=== PATIENT | female | born 1945 | race Caucasian/White ===

== ENCOUNTER 2017-10-12 19:20 | Observation (INO) ==
[~2017-10-12 19:20] MED LIST: Piperacillin/Tazobactam 3.375 GM in Water for inj. (sterile) 20 ML 20 ML IVPB ONE
[2017-10-12] MEDS ORDERED: *HR* Morphine 2 MG/ML SYRINGE IVP ONE (19:53)
[2017-10-12] MEDS ORDERED: 0.9 % Sodium Chloride 1,000 ML IVC ONE (19:53)
[2017-10-12] MEDS ORDERED: Ondansetron 4 MG/2 ML VIAL IVP ONE ×2 (19:53→21:41)
--- NOTE | 2017-10-12 20:04 | Emergency Department Note ---
Disposition Clinical Impression: Abdominal pain Qualifiers: Abdominal location: unspecified location Qualified Code(s): R10.9 - Unspecified abdominal pain Disposition: Still a Patient Condition: Good Referrals: Gladis Allison CNP [Primary Care Provider] - Forms: ED Satisfaction Letter, Work/School Release Time of Disposition: 20:58 Abdominal Pain HPI - General Chief Complaint: ED Abdominal Pain Stated Complaint: R side abd pain Time Seen by Provider: 10/12/17 19:27 Source: patient Nursing Notes Reviewed: Yes Vital Signs Reviewed: Yes - History of Present Illness HPI Narrative: Mrs. Bailey, a 72 yo female, presents from home for evaluation of right sided abdominal pain. Onset 1 week ago with nausea. Progressed to waxing and waning sharp stabbing pain, located to the right flankn and RLQ. She notes it feels identical to prior kidney stones. She was reading about RLQ pain and became concerned about appendicitis. PMH:hx multiple nephrolithiasis requiring lithotripsy. HTN, hypothyroid, asthma. Urologist: Dr. Noonan ROS: Pos: as above Neg: fever, chills, vomiting, chest pain, unusual dyspnea, diaphoresis, hematuria, melena, hematochezia Pain Scale: 4 - Related Data Home Medications Medication Instructions Recorded Confirmed Lisinopril 10/11/15 Nexium 10/11/15 Synthroid 10/11/15 10/11/15 B Complex 09/05/16 Multivitamin 09/05/16 Previous Rx's Medication Instructions Recorded Nitrofurantoin Macrocrystal 100 mg PO BID #10 capsule 04/22/17 [Nitrofurantoin] Phenazopyridine HCl [Pyridium] 200 mg PO TIDAC #6 tab 04/22/17 cephALEXin [Keflex] 500 mg PO TID 10 Days capsule 04/24/17 Azithromycin [Zithromax] 250 - 500 mg PO DAILY #6 tablet 07/17/17 Guaifenesin [Mucinex] 1,200 mg PO BID PRN #30 tab.er.12h 07/17/17 Allergies Allergy/AdvReac Type Severity Reaction Status Date / Time levofloxacin [From Levaquin] Allergy Hives Verified 04/25/15 09:10 Erythromycin Base AdvReac Vomiting Verified 04/22/17 13:33 All systems ED: reviewed and negative except as stated. Review of Systems: As Per HPI Abdominal Pain PMH - Past Medical History Medical history: Reports: hypertension, kidney stones, thyroid disease Female Surgical History: Reports: orthopedic, other, other [employer] TECHNICIAN history: Reports: bilateral tubal ligation, other Psychiatric history: Reports: no psych history - Social History Smoking status: Never smoker Alcohol use: Reports: none Drug use: Reports: none Physical Exam Vital Signs Reviewed General: Patient is alert, oriented, and in no acute distress. HEENT: No facial asymmetry. Head is normocephalic and atraumatic. PERRLA, EOMI. oral mucosa moist. Trachea midline. Cardiovascular: Heart regular rate and rhythm without clicks, rubs, gallops, or murmurs. No JVD. PMI nondisplaced. Respiratory: Symmetric chest rise with good respiratory effort. Bilateral breath sounds are clear without wheezing, crackles, or rhonchi. Abdomen: Bowel sounds present normoactive x-4 quadrants. Abdomen is soft, nondistended. Right-sided flank tenderness. No CVA tenderness. Right lower quadrant tenderness to palpation. No rebound or guarding. Musculoskeletal: Spontaneously moving all extremities. Neuro: Alert and oriented 4. Sensation light touch intact. Psych: Patient's affect is appropriate for situation. - General Limitations: no limitations General appearance: alert, in no apparent distress Course Course Narrative: Patient presents with right flank pain clinically consistent with nephrolithiasis in the context of presentation and past medical history. Given her concerns over appendicitis as well as right lower quadrant pain, will CT abdomen pelvis with IV contrast to assess hydronephrosis, nephrolithiasis, evidence of appendicitis or periappendiceal inflammation. Serum hematology is unremarkable specifically no leukocytosis. Serum chemistries unremarkable specifically normal renal function, normal electrolytes, no elevated hepatic enzymes, no elevated pancreatic enzymes, no elevated biliary enzymes. Patient has been signed out to Dr. Vanessa. Pending: Urinalysis, CT abdomen pelvis with IV contrast. Recommendations: If CT shows nephrolithiasis, then recommend anti-medic, analgesia, follow-up to urology. If urinalysis is consistent with urinary tract infection, recommend Keflex empiric antibody therapy with follow-up to primary care physician. Vital Signs Temperature 97.8 F 10/12/17 19:21 Pulse Rate 84 10/12/17 19:21 Respiratory Rate 18 10/12/17 19:21 Blood Pressure 160/72 10/12/17 19:21 O2 Sat by Pulse Oximetry 98 10/12/17 19:21 Temperature 97.8 F 10/12/17 19:21 Pulse Rate 84 10/12/17 19:21 Respiratory Rate 18 10/12/17 19:21 Blood Pressure 160/72 10/12/17 19:21 O2 Sat by Pulse Oximetry 98 10/12/17 19:21 Oxygen Delivery Oxygen Delivery Room Air Abdominal Pain - Lab Data Result diagrams: 10/12/17 20:07 10/12/17 20:07 Lab Results 10/12/17 10/12/17 10/12/17 Range/Units 20:07 20:07 20:07 WBC 8.7 (4.3-11.1) K/mcL RBC 4.94 (3.82-4.97) M/mcL Hgb 14.9 (11.5-15.4) g/dL Hct 46.1 H (35.3-44.9) % MCV 93.3 (83.0-100.0) fL MCH 30.2 (28.0-33.3) pg MCHC 32.3 (31.6-35.5) g/dL RDW 11.9 (11.5-14.5) % Plt Count 255 (140-400) K/mcL MPV 10.1 (9.4-12.4) fL Immature Gran % 0.5 (0-4) % Seg Neutrophils % 71.3 % Lymphocytes % 18.3 % Monocytes % 7.1 % Eosinophils % 2.2 % Basophils % 0.6 % Neutrophils # 6.2 (1.6-8.9) K/mcL Lymphocytes # 1.6 (0.6-4.6) K/mcL Monocytes # 0.6 (0.0-1.3) K/mcL Eosinophils # 0.2 (0.0-0.6) K/mcL Basophils # 0.1 (0.0-0.2) K/mcL PT 11.2 (9.4-12.1) Seconds INR 1.0 APTT 28.6 (26.0-36.0) Seconds Sodium 139 (136-145) mEq/L Potassium 4.1 (3.5-5.1) mEq/L Chloride 106 (98-107) mEq/L Carbon Dioxide 26 (23-29) mEq/L BUN 14 (8-23) mg/dL Creatinine 0.77 (0.60-1.20) mg/dL Est GFR ( Amer) > 60 (> 60) Est GFR (Non-Af Amer) > 60 (> 60) BUN/Creatinine Ratio 18 (6-26) Glucose 113 H (70-105) mg/dL Calculated Osmolality 289 (280-300) Lactic Acid (0.5-2.2) mmol/L Calcium 9.2 (8.6-10.3) mg/dL Total Bilirubin 0.5 (0.3-1.0) mg/dL Direct Bilirubin 0.1 (0.0-0.2) mg/dL Indirect Bilirubin 0.4 (0.0-1.2) mg/dL AST 16 (13-39) Units/L ALT 16 (7-52) Units/L Alkaline Phosphatase 56 (34-104) Units/L Troponin I (< 0.04) ng/mL Serum Total Protein 6.8 (6.4-8.9) g/dL Albumin 3.9 (3.5-5.7) g/dL Globulin 2.9 (2.4-3.5) g/dL Albumin/Globulin Ratio 1.3 (1.1-2.2) Lipase 29 (11-82) Units/L 10/12/17 10/12/17 Range/Units 20:07 20:07 WBC (4.3-11.1) K/mcL RBC (3.82-4.97) M/mcL Hgb (11.5-15.4) g/dL Hct (35.3-44.9) % MCV (83.0-100.0) fL MCH (28.0-33.3) pg MCHC (31.6-35.5) g/dL RDW (11.5-14.5) % Plt Count (140-400) K/mcL MPV (9.4-12.4) fL Immature Gran % (0-4) % Seg Neutrophils % % Lymphocytes % % Monocytes % % Eosinophils % % Basophils % % Neutrophils # (1.6-8.9) K/mcL Lymphocytes # (0.6-4.6) K/mcL Monocytes # (0.0-1.3) K/mcL Eosinophils # (0.0-0.6) K/mcL Basophils # (0.0-0.2) K/mcL PT (9.4-12.1) Seconds INR APTT (26.0-36.0) Seconds Sodium (136-145) mEq/L Potassium (3.5-5.1) mEq/L Chloride (98-107) mEq/L Carbon Dioxide (23-29) mEq/L BUN (8-23) mg/dL Creatinine (0.60-1.20) mg/dL Est GFR ( Amer) (> 60) Est GFR (Non-Af Amer) (> 60) BUN/Creatinine Ratio (6-26) Glucose (70-105) mg/dL Calculated Osmolality (280-300) Lactic Acid 1.2 (0.5-2.2) mmol/L Calcium (8.6-10.3) mg/dL Total Bilirubin (0.3-1.0) mg/dL Direct Bilirubin (0.0-0.2) mg/dL Indirect Bilirubin (0.0-1.2) mg/dL AST (13-39) Units/L ALT (7-52) Units/L Alkaline Phosphatase (34-104) Units/L Troponin I < 0.03 (< 0.04) ng/mL Serum Total Protein (6.4-8.9) g/dL Albumin (3.5-5.7) g/dL Globulin (2.4-3.5) g/dL Albumin/Globulin Ratio (1.1-2.2) Lipase (11-82) Units/L
[2017-10-12 20:16] LABS: Basophils # 0.1 K/mcL (0.0-0.2); Basophils % 0.6 %; Eosinophils # 0.2 K/mcL (0.0-0.6); Eosinophils % 2.2 %; Hematocrit 46.1 % (35.3-44.9); Hemoglobin 14.9 g/dL (11.5-15.4); Immature Granulocytes % 0.5 % (0-4); Lymphocytes # 1.6 K/mcL (0.6-4.6); Lymphocytes % 18.3 %; Mean Corpuscular HGB Conc 32.3 g/dL (31.6-35.5); Mean Corpuscular Hemoglobin 30.2 pg (28.0-33.3); Mean Corpuscular Volume 93.3 fL (83.0-100.0); Mean Platelet Volume 10.1 fL (9.4-12.4); Monocytes # 0.6 K/mcL (0.0-1.3); Monocytes % 7.1 %; Neutrophils # 6.2 K/mcL (1.6-8.9); Platelet Count 255 K/mcL (140-400); Red Blood Count 4.94 M/mcL (3.82-4.97); Red Cell Distribution Width 11.9 % (11.5-14.5); Segmented Neutrophils % 71.3 %
[2017-10-12 20:22] LABS: Prothrombin Time 11.2 Seconds (9.4-12.1)
[2017-10-12 20:24] LABS: Activated Partial Thrombo Time 28.6 Seconds (26.0-36.0)
[2017-10-12 20:37] LABS: Alanine Aminotransferase 16 Units/L (7-52); Albumin 3.9 g/dL (3.5-5.7); Albumin/Globulin Ratio 1.3 (1.1-2.2); Alkaline Phosphatase 56 Units/L (34-104); Aspartate Amino Transferase 16 Units/L (13-39); BUN/Creatinine Ratio 18 (6-26); Bilirubin,Direct 0.1 mg/dL (0.0-0.2); Bilirubin,Indirect 0.4 mg/dL (0.0-1.2); Bilirubin,Total 0.5 mg/dL (0.3-1.0); Blood Urea Nitrogen 14 mg/dL (8-23); Calcium 9.2 mg/dL (8.6-10.3); Carbon Dioxide 26 mEq/L (23-29); Chloride 106 mEq/L (98-107); Globulin 2.9 g/dL (2.4-3.5); Glucose 113 mg/dL (70-105); Lipase 29 Units/L (11-82); Osmolality,Calculated 289 (280-300); Potassium 4.1 mEq/L (3.5-5.1); Sodium 139 mEq/L (136-145); Total Protein 6.8 g/dL (6.4-8.9); eGFR For African Americans > 60 (> 60); eGFR For Non-African Americans > 60 (> 60)
--- NOTE | 2017-10-12 20:39 | Emergency Department Note ---
START Narrative - START START: I examined this patient and my medical decision-making was reviewed with the Resident Physician. I agree with the documented findings, disposition and treatment plan as described except to the extent set forth below. 72 dalila old female presn to the ED with hsiory of kidney stone and RLQ pain and states that this feels simliar to her history of kidney stones although she is concerned about appednciits. I have signed patient out to Dr. Vanessa, based on ABCT dispositon. IF negative then she can be discharged home.
--- NOTE | 2017-10-12 20:41 | Emergency Department Note ---
Disposition Clinical Impression: Acute appendicitis Qualifiers: Acute appendicitis type: unspecified acute appendicitis type Qualified Code(s) : K35.80 - Unspecified acute appendicitis Disposition: Still a Patient Condition: Good Referrals: Gladis Allison CNP [Primary Care Provider] - Forms: ED Satisfaction Letter, Work/School Release Time of Disposition: 21:44 Abdominal Pain HPI - General Chief Complaint: ED Abdominal Pain Stated Complaint: R side abd pain Time Seen by Provider: 10/12/17 19:27 Source: patient - History of Present Illness Pain Scale: 4 - Related Data Home Medications Medication Instructions Recorded Confirmed Lisinopril 10/11/15 Nexium 10/11/15 Synthroid 10/11/15 10/11/15 B Complex 09/05/16 Multivitamin 09/05/16 Previous Rx's Medication Instructions Recorded Nitrofurantoin Macrocrystal 100 mg PO BID #10 capsule 04/22/17 [Nitrofurantoin] Phenazopyridine HCl [Pyridium] 200 mg PO TIDAC #6 tab 04/22/17 cephALEXin [Keflex] 500 mg PO TID 10 Days capsule 04/24/17 Azithromycin [Zithromax] 250 - 500 mg PO DAILY #6 tablet 07/17/17 Guaifenesin [Mucinex] 1,200 mg PO BID PRN #30 tab.er.12h 07/17/17 Allergies Allergy/AdvReac Type Severity Reaction Status Date / Time levofloxacin [From Levaquin] Allergy Hives Verified 04/25/15 09:10 Erythromycin Base AdvReac Vomiting Verified 04/22/17 13:33 Abdominal Pain PMH - Past Medical History Medical history: Reports: hypertension, kidney stones, thyroid disease Female Surgical History: Reports: orthopedic, other, other [employer]AKAGE history: Reports: bilateral tubal ligation, other Psychiatric history: Reports: no psych history - Social History Smoking status: Never smoker Alcohol use: Reports: none Drug use: Reports: none Physical Exam - General Limitations: no limitations General appearance: alert, in no apparent distress Course - Reevaluation(s) Reevaluation #1: received the patient in sign out from the department emergency medicine attending Michelle John @ 2039. Patient was initially seen and evaluated by Dr. Gonzalez and Dr. Michelle John. Please see The notes that portion of the ED workup and management. 72-year-old female with abdominal pain in the right lower quadrant. Concerns for possible kidney stone and appendicitis. Labs were essentially baseline are within normal limits. Patient has an abdominal pelvic CT ordered with IV fluids. Check on the results of those tests. And reassess patient. Disposition pending. Time: 20:38 Reevaluation #2: ED workup is complete. Abdominopelvic CT with radiology as acute uncomplicated appendicitis. Patient and son present informed of results. Page Dr. Ding general surgeon retail presentation specialist. Disposition pending. Admission anticipated. Time: 21:38 Reevaluation #3: Chest the case with Dr. Valle on-call surgeon agree to have the patient admitted. He had requested that I write for something for pain and IV fluids and antibiotics. Patient get 125 mL per hour of normal saline patient is given 0.5 mg of Dilaudid IV for margins of Zofran IV and 3.375 mg of Zosyn. Admission orders place. Patient admitted with diagnosis of acute appendicitis in stable condition Time: 21:43 Vital Signs Temperature 97.8 F 10/12/17 19:21 Pulse Rate 84 10/12/17 19:21 Respiratory Rate 18 10/12/17 19:21 Blood Pressure 160/72 10/12/17 19:21 O2 Sat by Pulse Oximetry 98 10/12/17 19:21 Temperature 97.8 F 10/12/17 19:21 Pulse Rate 82 10/12/17 20:15 Respiratory Rate 16 10/12/17 20:15 Blood Pressure 158/91 10/12/17 20:15 O2 Sat by Pulse Oximetry 97 10/12/17 20:15 Oxygen Delivery Oxygen Delivery Room Air Abdominal Pain - Lab Data Result diagrams: 10/12/17 20:07 10/12/17 20:07 Lab Results 10/12/17 10/12/17 10/12/17 Range/Units 20:07 20:07 20:07 WBC 8.7 (4.3-11.1) K/mcL RBC 4.94 (3.82-4.97) M/mcL Hgb 14.9 (11.5-15.4) g/dL Hct 46.1 H (35.3-44.9) % MCV 93.3 (83.0-100.0) fL MCH 30.2 (28.0-33.3) pg MCHC 32.3 (31.6-35.5) g/dL RDW 11.9 (11.5-14.5) % Plt Count 255 (140-400) K/mcL MPV 10.1 (9.4-12.4) fL Immature Gran % 0.5 (0-4) % Seg Neutrophils % 71.3 % Lymphocytes % 18.3 % Monocytes % 7.1 % Eosinophils % 2.2 % Basophils % 0.6 % Neutrophils # 6.2 (1.6-8.9) K/mcL Lymphocytes # 1.6 (0.6-4.6) K/mcL Monocytes # 0.6 (0.0-1.3) K/mcL Eosinophils # 0.2 (0.0-0.6) K/mcL Basophils # 0.1 (0.0-0.2) K/mcL PT 11.2 (9.4-12.1) Seconds INR 1.0 APTT 28.6 (26.0-36.0) Seconds Sodium 139 (136-145) mEq/L Potassium 4.1 (3.5-5.1) mEq/L Chloride 106 (98-107) mEq/L Carbon Dioxide 26 (23-29) mEq/L BUN 14 (8-23) mg/dL Creatinine 0.77 (0.60-1.20) mg/dL Est GFR ( Amer) > 60 (> 60) Est GFR (Non-Af Amer) > 60 (> 60) BUN/Creatinine Ratio 18 (6-26) Glucose 113 H (70-105) mg/dL Calculated Osmolality 289 (280-300) Lactic Acid (0.5-2.2) mmol/L Calcium 9.2 (8.6-10.3) mg/dL Total Bilirubin 0.5 (0.3-1.0) mg/dL Direct Bilirubin 0.1 (0.0-0.2) mg/dL Indirect Bilirubin 0.4 (0.0-1.2) mg/dL AST 16 (13-39) Units/L ALT 16 (7-52) Units/L Alkaline Phosphatase 56 (34-104) Units/L Troponin I (< 0.04) ng/mL Serum Total Protein 6.8 (6.4-8.9) g/dL Albumin 3.9 (3.5-5.7) g/dL Globulin 2.9 (2.4-3.5) g/dL Albumin/Globulin Ratio 1.3 (1.1-2.2) Lipase 29 (11-82) Units/L Urine Color (Yellow) Urine Clarity (Clear) Urine pH (5.0-8.0) pH Units Ur Specific [place] (1.010-1.025) Urine Protein (Neg-Trace) mg/dL Urine Glucose (UA) (Normal) mg/dL Urine Ketones (Negative) mg/dL Urine Blood (Negative) Urine Nitrite (Negative) Urine Bilirubin (Negative) Urine Urobilinogen (Normal) mg/dL Ur Leukocyte Esterase (Negative) Urine Microscopic RBC (0-3) per hpf Urine Microscopic WBC (0-3) per hpf Ur Squamous Epith Cells (None-Few) per lpf Urine Bacteria (None-Few) per hpf Hyaline Casts (None-Few) per lpf Ur Culture Indicated? (NO) 10/12/17 10/12/17 10/12/17 Range/Units 20:07 20:07 21:13 WBC (4.3-11.1) K/mcL RBC (3.82-4.97) M/mcL Hgb (11.5-15.4) g/dL Hct (35.3-44.9) % MCV (83.0-100.0) fL MCH (28.0-33.3) pg MCHC (31.6-35.5) g/dL RDW (11.5-14.5) % Plt Count (140-400) K/mcL MPV (9.4-12.4) fL Immature Gran % (0-4) % Seg Neutrophils % % Lymphocytes % % Monocytes % % Eosinophils % % Basophils % % Neutrophils # (1.6-8.9) K/mcL Lymphocytes # (0.6-4.6) K/mcL Monocytes # (0.0-1.3) K/mcL Eosinophils # (0.0-0.6) K/mcL Basophils # (0.0-0.2) K/mcL PT (9.4-12.1) Seconds INR APTT (26.0-36.0) Seconds Sodium (136-145) mEq/L Potassium (3.5-5.1) mEq/L Chloride (98-107) mEq/L Carbon Dioxide (23-29) mEq/L BUN (8-23) mg/dL Creatinine (0.60-1.20) mg/dL Est GFR ( Amer) (> 60) Est GFR (Non-Af Amer) (> 60) BUN/Creatinine Ratio (6-26) Glucose (70-105) mg/dL Calculated Osmolality (280-300) Lactic Acid 1.2 (0.5-2.2) mmol/L Calcium (8.6-10.3) mg/dL Total Bilirubin (0.3-1.0) mg/dL Direct Bilirubin (0.0-0.2) mg/dL Indirect Bilirubin (0.0-1.2) mg/dL AST (13-39) Units/L ALT (7-52) Units/L Alkaline Phosphatase (34-104) Units/L Troponin I < 0.03 (< 0.04) ng/mL Serum Total Protein (6.4-8.9) g/dL Albumin (3.5-5.7) g/dL Globulin (2.4-3.5) g/dL Albumin/Globulin Ratio (1.1-2.2) Lipase (11-82) Units/L Urine Color Yellow (Yellow) Urine Clarity Hazy A (Clear) Urine pH 7.0 (5.0-8.0) pH Units Ur Specific [place] 1.018 (1.010-1.025) Urine Protein Negative (Neg-Trace) mg/dL Urine Glucose (UA) Normal (Normal) mg/dL Urine Ketones Negative (Negative) mg/dL Urine Blood Trace H (Negative) Urine Nitrite Negative (Negative) Urine Bilirubin Negative (Negative) Urine Urobilinogen Normal (Normal) mg/dL Ur Leukocyte Esterase Large H (Negative) Urine Microscopic RBC 0-3 (0-3) per hpf Urine Microscopic WBC 50-100 H (0-3) per hpf Ur Squamous Epith Cells Many H (None-Few) per lpf Urine Bacteria Moderate H (None-Few) per hpf Hyaline Casts None Seen (None-Few) per lpf Ur Culture Indicated? NO. (NO)
[2017-10-12 21:22] LABS: Bilirubin,Urine Negative (Negative); Blood,Urine Trace (Negative); Color,Urine Yellow (Yellow); Glucose,Urine (UA) Normal (Normal); Ketones,Urine Negative (Negative); Leukocyte Esterase,Urine Large (Negative); Nitrite,Urine Negative (Negative); Protein,Urine Negative (Neg-Trace); Specific Gravity,Urine 1.018 (1.010-1.025); Urobilinogen,Urine Normal (Normal)
[2017-10-12 21:24] LABS: Bacteria,Urine Moderate per hpf (None-Few); Hyaline Casts,Urine None Seen per lpf (None-Few); RBC,Urine 0-3 per hpf (0-3); Squamous Epithelial Cell,Urine Many per lpf (None-Few); WBC,Urine 50-100 per hpf (0-3)
[2017-10-12 21:25] LABS: Clarity,Urine Hazy (Clear)
[2017-10-12] MEDS ORDERED: *HR* HYDROmorphone (PF) 1 MG/ML SYRINGE IVP ONE (21:41)
[2017-10-12] MEDS ORDERED: *HR* LORazepam 2 MG/ML VIAL IVP ONE (21:52)
[2017-10-12] MEDS: 0.9 % Sodium Chloride 1,000 ML IVC SCH (22:26)
[2017-10-12] MEDS ORDERED: Piperacillin/Tazobactam 3.375 GM in Water for inj. (sterile) 20 ML 20 ML IVPB ONE (23:00)
[2017-10-13] MEDS: cefOXitin 2,000 MG in Water for inj. (sterile) 20 ML 10 ML IVP SCH ×5 (01:18→22:00)
[2017-10-13] MEDS ORDERED: cefOXitin 2,000 MG in D5% in Water (Mini-Bag+) 100 ML IVPB SCH (06:00)
[2017-10-13] MEDS: 0.9 % Sodium Chloride 1,000 ML IVC SCH ×2 (06:14→15:40)
--- NOTE | 2017-10-13 10:22 | General Surg History&Physical ---
Date of Encounter: 10/13/17 Time of Encounter: 09:30 Assessment and Plan (1) Acute appendicitis Current Visit: Yes Status: Acute The assessment and plan as outlined above was discussed with the patient and/or family members who expressed understanding and agreement. All questions were answered. NPO IV fluids IV antibiotics- Mefoxin Supportive care PPI therapy daily Incentive spirometer every 1 hour while awake Risks, benefits, alternatives, expected outcomes have been reviewed with the patient she is in agreement to proceed to the operating room with Dr. Ding for laparoscopic appendectomy in the next 24 hours. Qualifiers: Acute appendicitis type: with localized peritonitis Qualified Code(s): K35.3 - Acute appendicitis with localized peritonitis (2) DVT prophylaxis Current Visit: Yes Status: Acute The assessment and plan as outlined above was discussed with the patient and/or family members who expressed understanding and agreement. All questions were answered. EPCDs to bilateral lower extremities for DVT prophylaxis Ambulatory hallways 3 times a day History of Present Illness Chief complaint: Right-sided abdominal pain HPI: Ms. Nunn is a 72 year old female who presented to the emergency department last evening with complaints of a four-day history of right-sided abdominal pain. She states that she has a history of kidney stones and that she thought that this was what was going on. She states the pain was persistent and it did not progress and became severe. She states that the intensity of the pain does wax and wane. She decided to present to the emergency Department for evaluation due to the persistence of the pain. She does admit to diarrhea this week but denies any melena or hematochezia. She denies any nausea or vomiting. She denies any fevers or chills. She admits to shortness of breath but she states this is chronic for her. She denies any chest pains. She denies any difficulty with urination. She admits to reflux the states this is chronic for her. She has had a CAT scan evaluation which shows evidence of acute uncomplicated appendicitis. The patient's been admitted to the hospital for further treatment. Past Med Surg Social Fam HX - Past Medical History Source: patient Medical history: hypertension, kidney stones, thyroid disease Psychiatric history: no psych history - Past Surgical History Surgical History: breast surgery (right breast partial mastectomy for precancerous lesion), orthopedic, other (left shoulder tendon repair), other ( lithotripsy for kidney stones, colonoscopy X 2 (last one normal and less than 10 years ago), tubal ligation, heart cath X 3 without intervention) - Social History Smoking Status: Former smoker (quit greater than 10 years ago) Smokeless Tobacco Status: No Alcohol use: none Drug use: none Current living situation: Home - Independent Activity Level: Independent ambulation - Family History Mother Living Status: Age at : 90 Cause of : unknown (reaction to morphine ?) Father Living Status: Cause of : Dementia Sister Living Status: Still Living Medications and Allergies Levothyroxine [Synthroid] 88 mcg PO 0630 10/11/15 [History] Lisinopril [Zestril] 20 mg PO QAM 10/11/15 [History] Betamethasone/Propylene Glyc [Betamethasone Dp Aug 0.05% Lot] 1 appl TP BID PRN 10/12/17 [History] Calcium Carbonate [Tums] 1,000 mg PO Q4HR PRN 10/12/17 [History] Clobetasol Propionate [Temovate 0.05%] 1 appl TP BID PRN 10/12/17 [History] Ergocalciferol (VITAMIN D2) [Vitamin D2] 50,000 unit PO MO 10/12/17 [History] Lisinopril [Zestril] 10 mg PO QPM PRN 10/12/17 [History] 3 Allergy/AdvReac Type Severity Reaction Status Date / Time levofloxacin [From Levaquin] Allergy Hives Verified 04/25/15 09:10 Erythromycin Base AdvReac Vomiting Verified 04/22/17 13:33 Review of Systems All systems PM: reviewed and no additional remarkable complaints except as stated (in the HPI) All systems PM: A 10-system review of systems was performed and is negative for pertinent findings except as documented above in the HPI. General Surgery Exam Initial Vital Signs Temp Pulse Resp BP Pulse Ox 97.8 F 84 18 160/72 98 10/12/17 19:21 10/12/17 19:21 10/12/17 19:21 10/12/17 19:21 10/12/17 19:21 - General physical appearance well developed, well nourished, moderate pain - Eyes normal ocular movement - ENT normal mucosa, atraumatic, normocephalic - Neck trachea midline - Respiratory normal respiratory effort, clear to auscultation - Cardiovascular Cardiovascular exam: Present: RRR - Abdomen Abdomen general surgery: Present: bowel sounds present, soft, tender Abdominal Tenderness: Present: RLQ - Integumentary Integumentary general surgery: Present: warm and dry - Neurologic Present: CN 2-12 grossly intact - Musculoskeletal Present: normal gait, normal posture - Psychiatric Psychiatric general surgery: Present: appropriate, oriented to person, oriented to place, oriented to time, speech is normal, memory intact Results - Labs 10/12/17 20:07 10/12/17 20:07 Abnormal lab results Hct 46.1 % (35.3-44.9) H 10/12/17 20:07 Glucose 113 mg/dL (70-105) H 10/12/17 20:07 POC Glucose 129 (58-89) H 10/13/17 00:46 Urine Clarity Hazy (Clear) A 10/12/17 21:13 Urine Blood Trace (Negative) H 10/12/17 21:13 Ur Leukocyte Esterase Large (Negative) H 10/12/17 21:13 Urine Microscopic WBC 50-100 per hpf (0-3) H 10/12/17 21:13 Ur Squamous Epith Cells Many per lpf (None-Few) H 10/12/17 21:13 Urine Bacteria Moderate per hpf (None-Few) H 10/12/17 21:13 All other labs normal. - Imaging Additional studies: Abdomen/Pelvis CT 10/12/17 19:53 IMPRESSION: Findings compatible with acute uncomplicated appendicitis. There is fluid within the endometrial canal, which is unusual for the patient's age. After resolution of acute symptoms, follow-up nonemergent pelvic ultrasound is recommended to better evaluate that. D/ / Alexander Blanchard MD / Alexander Blanchard MD Interpreting Provider: Alexander Blanchard MD - Attending Attestation For this encounter, I have reviewed the ROAD CREW MEMBER or PA documentation, treatment plan, and medical decision making; and I have had face to face time with this patient.
[2017-10-13] MEDS ORDERED: Ondansetron 4 MG/2 ML VIAL IVP PRN (10:29)
[2017-10-13] MEDS ORDERED: Naloxone 0.4 MG/ML INJ IVP PRN (10:29)
[2017-10-13] MEDS ORDERED: traMADol 50 MG TABLET PO PRN (10:33)
[2017-10-13] MEDS ORDERED: Acetaminophen 325 MG TABLET PO PRN (10:33)
[2017-10-13] MEDS: Ketorolac 15 MG/ML VIAL IVP SCH ×2 (11:34→15:41)
[2017-10-13] MEDS ORDERED: *HR* Metoprolol 5 MG/5 ML VIAL IVP ONE (15:15)
[2017-10-13] MEDS ORDERED: D5% in Water 1,000 ML IVC PRN (18:08)
[2017-10-13] MEDS ORDERED: Dextrose Gel 15 GM/37.5 ML TUBE PO PRN ×2 (18:08)
[2017-10-13] MEDS ORDERED: *HR* Dextrose 50 % in Water (Syg) 50 ML SYRINGE IVP PRN (18:08)
[2017-10-13] MEDS ORDERED: Lidocaine -MPF 2% 2 ML VIAL ONE (22:01)
[2017-10-13] MEDS ORDERED: Ondansetron 4 MG/2 ML VIAL ONE (22:01)
[2017-10-13] MEDS ORDERED: *HR* Propofol 200 MG/20 ML VIAL IVP ONE (22:01)
[2017-10-13] MEDS ORDERED: Dexamethasone 4 MG/ML VIAL ONE (22:01)
[2017-10-13] MEDS ORDERED: *HR* FentaNYL (PF) 100 MCG/2 ML VIAL ONE ×2 (22:01→23:27)
--- NOTE | 2017-10-13 22:14 | Anesthesia Evaluation PreOp ---
Date of Encounter: 10/13/17 Time of Encounter: 22:25 - Past History Planned Operation: Lap Appendectomy Cardiac History: HTN Pulmonary History: Former smoker [employer] History: Denies Any Significant HX Other Medical History: Thyroid, GERD Anesthesia History: No Prior Anesthetic Complications : No Alcohol Use: none Drug use: none Medications and Allergies Levothyroxine [Synthroid] 88 mcg PO 0630 10/11/15 [History] Lisinopril [Zestril] 20 mg PO QAM 10/11/15 [History] Betamethasone/Propylene Glyc [Betamethasone Dp Aug 0.05% Lot] 1 appl TP BID PRN 10/12/17 [History] Calcium Carbonate [Tums] 1,000 mg PO Q4HR PRN 10/12/17 [History] Clobetasol Propionate [Temovate 0.05%] 1 appl TP BID PRN 10/12/17 [History] Ergocalciferol (VITAMIN D2) [Vitamin D2] 50,000 unit PO MO 10/12/17 [History] Lisinopril [Zestril] 10 mg PO QPM PRN 10/12/17 [History] 3 Allergy/AdvReac Type Severity Reaction Status Date / Time levofloxacin [From Levaquin] Allergy Hives Verified 04/25/15 09:10 Erythromycin Base AdvReac Vomiting Verified 04/22/17 13:33 - Meds/Allergy Pre-op Review Medications Reviewed: Yes Allergies Reviewed: Yes Beta Blockers on Current Med List: No Anesthesia Results - Labs 10/12/17 20:07 10/12/17 20:07 Laboratory Tests 10/12/17 10/12/17 10/12/17 20:07 20:07 20:07 Hgb 14.9 Hct 46.1 H Plt Count 255 PT 11.2 APTT 28.6 Sodium 139 Potassium 4.1 BUN 14 Creatinine 0.77 - Imaging EKG: report reviewed (SR Left Anterior Fascicular Block) Additional studies: EF 55% Anesthesia Exam O2 Sat Height 1.65 m Weight 95.25 kg Weight 95.25 kg O2 Sat by Pulse Oximetry 94 O2 Sat by Pulse Oximetry 95 O2 Sat by Pulse Oximetry 94 O2 Sat by Pulse Oximetry 95 O2 Sat by Pulse Oximetry 96 O2 Sat by Pulse Oximetry 98 Vital Signs Temp Pulse Resp BP Pulse Ox 97.8 F 84 18 160/72 98 10/12/17 19:21 10/12/17 19:21 10/12/17 19:21 10/12/17 19:21 10/12/17 19:21 Height: 5'5 Weight: 209 lbs NPO (# of Hours): MN Pain Scale: 0 - HEENT Pupil (Motor): Pupils equal, EOMI Mallampati: II Oral Opening: Less than or equal to 3 - [employer] LOC: Oriented [employer] Motor: Normal RUE, Normal LUE, Normal RLE, Normal LLE, Normal Face [employer] Sensory: Normal: RUE, LUE, RLE, LLE, Face - Cardiac Rhythm: Regular Murmur: None JVD: No Carotid Bruit: No - Pulmonary Breath Sounds: bilateral Clear Respiratory Effort: Symmetrical Anesthesia Assess/Plan ASA Score: 2 Modified Deric Scale for Level of Consciousness: Cooperative, oriented, and tranquil Anesthetic Plan: General Monitoring Plan: Standard Monitors Recovery Plan: PACU (Discussed GA, agrees to proceed)
[2017-10-13] MEDS ORDERED: Acetaminophen IV 1,000 MG/100 ML INFUS..BTL ONE (22:48)
[2017-10-13] MEDS ORDERED: Lidocaine -MPF 4% 5 ML AMPUL ONE (23:18)
--- NOTE | 2017-10-13 23:37 | Operative Note ---
Date of procedure: 10/13/17 Pre-op diagnosis: appendicitis Post-op diagnosis: same Procedure: Laparoscopic Appendectomy Anesthesia: MIRIAM Surgeon: Yasmani Ding Was there an ex assistant/program director present: No Estimated blood loss (cc): 5 Specimen: appendix Condition: stable Disposition: same day Procedure in Detail: After informed consent, patient was taken to the operating room placed in supine position. After adequate sedation anesthesia the abdomen was prepped and draped. A 12 mm cannula was placed in the umbilicus. A 5 mm cannulas placed in suprapubic region and the left lower quadrant. Camera was inserted and the abdomen after a pneumoperitoneum. 2 Navdeep graspers were used to identify the base of the appendix. A appendiceal window was created. A REFUGIO endoscopic stapler was placed across the base. A vascular load was placed across the mesoappendix. Once the appendix was was placed in an Endobag and removed through the umbilicus. The right lower quadrant was suctioned dry no bleeding was identified. Remainder the pneumoperitoneum was evacuated. The umbilicus was closed with an 0 Vicryl suture in [id number] fashion. Skin was closed with 4-0 Vicryl suture and Dermabond.
[2017-10-13] MEDS ORDERED: Ketorolac 30 MG/ML VIAL ONE (23:50)
[2017-10-13] MEDS ORDERED: Neostigmine Methylsulfate 3 MG/3 ML SYRINGE ONE (23:51)
--- NOTE | 2017-10-14 00:24 | Anesthesia Evaluation Post Op ---
Date of Encounter: 10/14/17 Time of Encounter: 00:30 - Vital Signs Vital Signs: Vital Signs/O2 Sat/Glucose, Most Current Temp Pulse Resp BP Pulse Ox 10/14/17 00:05 97.4 F L 92 16 144/74 94 - Lungs Lungs: Clear Ascult./Percussion - Airway Airway: Non-obstructed - Cardiovascular Regular Rate - Mental Status Mental Status: Alert & Oriented, Answers Appropriately - Pain Pain Scale: 2 - Nausea Vomiting Nausea Vomiting: Not Present - Hydration Hydration: Ice chips - Discharge PostOp Status: Transfer Patient to floor
[2017-10-14] MEDS ORDERED: *HR* Dextrose 50 % in Water (Syg) 50 ML SYRINGE IVP PRN (00:58)
[2017-10-14] MEDS ORDERED: Ondansetron 4 MG/2 ML VIAL IVP PRN (00:58)
[2017-10-14] MEDS ORDERED: traMADol 50 MG TABLET PO PRN (00:58)
[2017-10-14] MEDS ORDERED: D5% in Water 1,000 ML IVC PRN (00:58)
[2017-10-14] MEDS ORDERED: Acetaminophen 325 MG TABLET PO PRN (00:58)
[2017-10-14] MEDS ORDERED: Dextrose Gel 15 GM/37.5 ML TUBE PO PRN ×2 (00:58)
[2017-10-14] MEDS ORDERED: Naloxone 0.4 MG/ML INJ IVP PRN (00:58)
[2017-10-14] MEDS: 0.9 % Sodium Chloride 1,000 ML IVC SCH ×3 (02:57→11:02)
--- NOTE | 2017-10-14 05:44 | General Surgery Progress Note ---
Date of Encounter: 10/14/17 Time of Encounter: 05:41 - Assessment and Plan (1) Acute appendicitis Current Visit: Yes Status: Acute Date of procedure: 10/13/17 Pre-op diagnosis: appendicitis Post-op diagnosis: same Procedure: Laparoscopic Appendectomy Anesthesia: DAVISA Surgeon: Yasmani Ding Estimated blood loss (cc): 5 POD 1 AM labs pending Pt remains afebrile, hemodynamically stable IV fluids IV antibiotics- Cefoxitin Supportive care PPI therapy daily Incentive spirometer every 1 hour while awake GI and DVT prophylaxis Qualifiers: Acute appendicitis type: with localized peritonitis Qualified Code(s): K35.3 - Acute appendicitis with localized peritonitis (2) DVT prophylaxis Current Visit: Yes Status: Acute EPCDs Ambulate with assistance TID, or as tolerated Subjective Patient reports: afebrile Objective Vital Signs - Last 8 Hours Temp Pulse Resp BP Pulse Ox 10/14/17 04:30 98.0 F 83 18 117/72 93 10/14/17 01:10 96 10/14/17 00:35 97.2 F L 70 20 136/71 96 10/14/17 00:25 67 20 144/82 98 10/14/17 00:15 64 20 156/86 98 10/14/17 00:05 97.4 F L 92 16 144/74 94 Intake and Output 10/13/17 10/13/17 10/14/17 15:59 23:59 07:59 Intake Total 1010 / 1010 700 / 700 Output Total 1225 / 1225 0 / 0 5 / 5 Balance -215 / -215 695 / 695 Intake: IV Fluids 1010 / 1010 700 / 700 0.9 % Sodium Chloride 1,000 ML 1000 / 1000 700 / 700 @ 125 mls/hr IVC .Q8H JOSE Rx#: [id number] Mefoxin 2,000 MG In Water for inj. (sterile) 10 ML @ 150 mls/ hr IVP Q6HR JOSE Rx#:[id number] Oral 0 / 0 0 / 0 Output: Urine 1225 / 1225 0 / 0 Estimated Blood Loss 5 / 5 Other: Meal NPO NPO Percent of Meal Consumed 0% 0% # Voids 1 Blood Glucose* 103 93 105 - Labs 10/12/17 20:07 10/12/17 20:07 Consult Discharge Plan - Plan Referrals: Gladis Allison CNP [Primary Care Provider] -
[2017-10-14] MEDS ORDERED: cefOXitin 2,000 MG in Water for inj. (sterile) 20 ML 10 ML IVP SCH (06:00)
[2017-10-14] MEDS ORDERED: Ketorolac 15 MG/ML VIAL IVP SCH (06:00)
[2017-10-14 06:49] VITALS: BP 121/71
[2017-10-14] MEDS ORDERED: Lisinopril 20 MG TABLET PO SCH ×2 (09:00)
--- NOTE | 2017-10-14 09:12 | Discharge Summary ---
Date of Encounter: 10/14/17 Time of Encounter: 09:09 - Discharge Diagnosis (1) Acute appendicitis Priority: Primary Status: Resolved Qualifiers: Acute appendicitis type: with localized peritonitis Qualified Code(s): K35.3 - Acute appendicitis with localized peritonitis - Discharge Medications Prescriptions: Ibuprofen 800 mg PO Q8H #90 tablet Tramadol HCl [Ultram] 50 mg PO TID PRN 7 Days #21 tab PRN Reason: Pain Home Medications: Levothyroxine [Synthroid] 88 mcg PO 0630 10/11/15 [History] Lisinopril [Zestril] 20 mg PO QAM 10/11/15 [History] Betamethasone/Propylene Glyc [Betamethasone Dp Aug 0.05% Lot] 1 appl TP BID PRN 10/12/17 [History] Calcium Carbonate [Tums] 1,000 mg PO Q4HR PRN 10/12/17 [History] Clobetasol Propionate [Temovate 0.05%] 1 appl TP BID PRN 10/12/17 [History] Ergocalciferol (VITAMIN D2) [Vitamin D2] 50,000 unit PO MO 10/12/17 [History] Lisinopril [Zestril] 10 mg PO QPM PRN 10/12/17 [History] Ibuprofen 800 mg PO Q8H #90 tablet 10/14/17 [Rx] Tramadol HCl [Ultram] 50 mg PO TID PRN 7 Days #21 tab 10/14/17 [Rx] Allergies/Adverse Reactions: 3 Allergy/AdvReac Type Severity Reaction Status Date / Time levofloxacin [From Levaquin] Allergy Hives Verified 04/25/15 09:10 Erythromycin Base AdvReac Vomiting Verified 04/22/17 13:33 General Surgery Exam Initial Vital Signs Temp Pulse Resp BP Pulse Ox 97.8 F 84 18 160/72 98 10/12/17 19:21 10/12/17 19:21 10/12/17 19:21 10/12/17 19:21 10/12/17 19:21 - General physical appearance well developed, well nourished, no distress - ENT atraumatic, normocephalic - Neck trachea midline, no venous distension - Respiratory normal expansion, normal respiratory effort, clear to auscultation - Abdomen Abdomen general surgery: Present: bowel sounds present, soft, tender (Expected postoperative tenderness) Hernia: Present: none - Incision Incision: Present: clean and dry, intact - Integumentary Integumentary general surgery: Present: warm and dry, no abnormal pigmentation - Neurologic Present: CN 2-12 grossly intact, normal coordination, normal sensation - Musculoskeletal Present: normal gait, normal posture - Psychiatric Psychiatric general surgery: Present: A&Ox3, appropriate, oriented to person, oriented to place, oriented to time, speech is normal, memory intact Date of admission: 10/12/17 23:07 Primary care physician: Gladis Allison CNP Discharging clinician: Hina Bahena Anticipated date of discharge: 10/14/17 - Patient Status Disposition: Home, Self-Care Condition: Good Functional capacity at discharge: independent ambulation Overall status at discharge: patient is back to baseline - Discharge Instructions Instructions: Laparoscopic Appendectomy (DC) Follow Up With: Gladis Allison CNP [Primary Care Provider] - Dianne Tang CNP [Advanced Practice Nurse] - 10/30/17 3:00 pm Additional Instructions: General Surgical Discharge Instructions 1. No pushing, pulling, or lifting greater than 15 lbs for 2-4 weeks (depending upon procedure). 2. You may shower beginning today, but no tub baths, soaking, or swimming for 2 weeks. 3. You may resume driving when you are off narcotics and are safe to react in a car. 4. Take ibuprofen every 8 hours for discomfort. If this does not relieve discomfort, you may take the as needed Percocet. Take narcotics as directed. Do not take more narcotics then directed and do not share your narcotics with any other person. Do not drink alcohol while on narcotics. 5. Take stool softeners (Colace) or a water based laxative (Miralax) while taking narcotics. You may hold for loose stools. 6. Report any fevers greater than 100.5F, increase abdominal discomfort, drainage that looks like pus, increased redness or pain at the surgical site, or any vomiting. 7. Report any pain in the calves, shortness of breath, or rapid heartbeat. 8. Follow-up in the office as directed. 9. If you were prescribed antibiotics, do not stop them without talking to your provider. - Diet and Activity Activity: increase activity as tolerated Diet: advance to your usual diet - Hospital Course Hospital course: Ms. Nunn is a 72 year old female who presented on 10/13/2017 for complaints of right lower quadrant discomfort. Her exam and CT was consistent with acute appendicitis. She was taken to the operating room on 10/14/2017 where she underwent an uncomplicated laparoscopic appendectomy. She is ambulating avoiding without difficulty, tolerating a soft diet without nausea or vomiting, afebrile, and vital signs are stable. Who begin discharge planning to home with follow-up in office in approximately 2 weeks. - Time Spent with Patient Total time spent providing and/or coordinating discharge services: Labs on day of discharge: Labs from last 24 hours 10/13/17 10/13/17 10/13/17 21:59 20:46 18:51 POC Glucose 93 H 93 H 93 H 10/13/17 10/13/17 10/13/17 17:22 12:58 11:16 POC Glucose 88 103 H 101 H 10/13/17 10/13/17 09:47 05:12 POC Glucose 110 H 103 H
[2017-10-14] MEDS: Ketorolac 15 MG/ML VIAL IVP SCH (11:02)
== END 2017-10-14 11:37 | disposition home or self-care (01) ==
LOC: 3ANU 19:20 → EMEROO 19:20 → 3ANU 23:32
PROVIDERS: ADMIT Surgery; ATTEND Surgery

== ENCOUNTER 2019-05-09 09:40 | Observation (INO) ==
[2019-05-09] MEDS ORDERED: Aspirin 81 MG TAB.CHEW PO ONE (09:59)
[2019-05-09 10:20] LABS: Basophils # 0.1 K/mcL (0.0-0.2); Basophils % 1.2 %; Eosinophils # 0.1 K/mcL (0.0-0.6); Eosinophils % 1.2 %; Hematocrit 44.3 % (35.3-44.9); Hemoglobin 14.7 g/dL (11.5-15.4); Immature Granulocytes % 0.3 % (0-4); Lymphocytes # 1.6 K/mcL (0.6-4.6); Lymphocytes % 27.5 %; Mean Corpuscular HGB Conc 33.2 g/dL (31.6-35.5); Mean Corpuscular Hemoglobin 30.4 pg (28.0-33.3); Mean Corpuscular Volume 91.7 fL (83.0-100.0); Monocytes # 0.4 K/mcL (0.0-1.3); Neutrophils # 3.7 K/mcL (1.6-8.9); Platelet Count 256 K/mcL (140-400); Red Blood Count 4.83 M/mcL (3.82-4.97); Red Cell Distribution Width 12.4 % (11.5-14.5); Segmented Neutrophils % 62.8 %; White Blood Count 5.9 K/mcL (4.3-11.1)
[2019-05-09 10:40] LABS: BUN/Creatinine Ratio 13 (6-26); Blood Urea Nitrogen 10 mg/dL (8-23); Calcium 9.3 mg/dL (8.6-10.3); Carbon Dioxide 28 mEq/L (23-29); Chloride 105 mEq/L (98-107); Glucose 138 mg/dL (70-105); Osmolality,Calculated 285 (280-300); Potassium 3.7 mEq/L (3.5-5.1); Sodium 137 mEq/L (136-145); Troponin I < 0.03 ng/mL (< 0.04); eGFR For African Americans > 60 (> 60); eGFR For Non-African Americans > 60 (> 60)
[2019-05-09] MEDS ORDERED: Isovue-370 500 ML BOTTLE IVP ONE (10:56)
[2019-05-09] MEDS ORDERED: Lisinopril 20 MG TABLET PO PRN (13:27)
[2019-05-09] MEDS ORDERED: Mag Hydrox/Al Hydrox/Simeth 30 ML UDC PO PRN (13:28)
[2019-05-09] MEDS ORDERED: MOM Conc 10 ML UD.LIQ PO PRN (13:28)
[2019-05-09] MEDS ORDERED: Acetaminophen 325 MG TABLET PO PRN (13:28)
[2019-05-09] MEDS ORDERED: Naloxone 0.4 MG/ML INJ IVP PRN (13:28)
[2019-05-09] MEDS ORDERED: Ondansetron 4 MG/2 ML VIAL IVP PRN (13:28)
[2019-05-09] MEDS ORDERED: *HR* Promethazine 25 MG/ML VIAL IVP PRN (13:28)
[2019-05-09] MEDS: *HR* Heparin 5,000 UNIT/ML VIAL SQ SCH (18:27)
[2019-05-10 03:27] LABS: Basophils # 0.1 K/mcL (0.0-0.2); Basophils % 1.4 %; Eosinophils # 0.2 K/mcL (0.0-0.6); Eosinophils % 2.9 %; Hematocrit 43.4 % (35.3-44.9); Hemoglobin 14.2 g/dL (11.5-15.4); Immature Granulocytes % 0.2 % (0-4); Lymphocytes # 2.2 K/mcL (0.6-4.6); Lymphocytes % 35.3 %; Mean Corpuscular HGB Conc 32.7 g/dL (31.6-35.5); Mean Corpuscular Hemoglobin 30.9 pg (28.0-33.3); Mean Corpuscular Volume 94.3 fL (83.0-100.0); Monocytes # 0.5 K/mcL (0.0-1.3); Monocytes % 7.5 %; Neutrophils # 3.3 K/mcL (1.6-8.9); Platelet Count 237 K/mcL (140-400); Red Cell Distribution Width 12.5 % (11.5-14.5); Segmented Neutrophils % 52.7 %; White Blood Count 6.3 K/mcL (4.3-11.1)
[2019-05-10 03:45] LABS: BUN/Creatinine Ratio 17 (6-26); Blood Urea Nitrogen 13 mg/dL (8-23); Calcium 8.9 mg/dL (8.6-10.3); Carbon Dioxide 27 mEq/L (23-29); Chloride 109 mEq/L (98-107); Chol/HDL Ratio 3.3 (0-4.9); Cholesterol 143 mg/dL (< 200); Glucose 105 mg/dL (70-105); HDL Cholesterol 44 mg/dL (40-59); LDL Cholesterol,Calculated 76 mg/dL (0-99); Magnesium 2.4 mg/dL (1.6-2.6); Osmolality,Calculated 292 (280-300); Phosphorous 3.8 mg/dL (2.7-4.5); Potassium 3.9 mEq/L (3.5-5.1); Sodium 141 mEq/L (136-145); Triglycerides 116 mg/dL (< 150); eGFR For African Americans > 60 (> 60); eGFR For Non-African Americans > 60 (> 60)
[2019-05-10 04:33] VITALS: BP 124/71
[2019-05-10] MEDS: *HR* Heparin 5,000 UNIT/ML VIAL SQ SCH (05:54)
[2019-05-10] MEDS ORDERED: Adalimumab [Humira] 40 MG SQ SCH (09:00)
[2019-05-10] MEDS ORDERED: Multivit/Ca/Min/Fe/FA 1 TAB TABLET PO SCH (09:00)
[2019-05-10] MEDS ORDERED: Cholecalciferol (D-3) 1,000 UNIT (25MCG) TABLET PO SCH (09:00)
== END 2019-05-10 12:33 | disposition home or self-care (01) ==
LOC: EMEROOARM 09:40 → 3BNU 09:40
PROVIDERS: ADMIT Internal Medicine Nephrology; ATTEND Internal Medicine Nephrology

== ENCOUNTER 2020-05-07 13:44 | Observation (INO) ==
[2020-05-07 15:02] LABS: Basophils # 0.1 K/mcL (0.0-0.2); Basophils % 1.1 %; Eosinophils # 0.1 K/mcL (0.0-0.6); Eosinophils % 0.9 %; Hematocrit 46.4 % (35.3-44.9); Hemoglobin 15.1 g/dL (11.5-15.4); Immature Granulocytes % 0.3 % (0-4); Lymphocytes # 1.3 K/mcL (0.6-4.6); Lymphocytes % 20.2 %; Mean Corpuscular HGB Conc 32.5 g/dL (31.6-35.5); Mean Corpuscular Hemoglobin 30.6 pg (28.0-33.3); Mean Corpuscular Volume 93.9 fL (83.0-100.0); Mean Platelet Volume 10.2 fL (9.4-12.4); Monocytes # 0.5 K/mcL (0.0-1.3); Monocytes % 7.8 %; Neutrophils # 4.6 K/mcL (1.6-8.9); Platelet Count 270 K/mcL (140-400); Red Blood Count 4.94 M/mcL (3.82-4.97); Red Cell Distribution Width 11.9 % (11.5-14.5); Segmented Neutrophils % 69.7 %; White Blood Count 6.6 K/mcL (4.3-11.1)
[2020-05-07 15:28] LABS: Troponin I < 0.03 ng/mL (< 0.04)
[2020-05-07 15:46] LABS: BUN/Creatinine Ratio 14 (6-26); Blood Urea Nitrogen 10 mg/dL (8-23); Calcium 9.1 mg/dL (8.6-10.3); Carbon Dioxide 28 mEq/L (23-29); Chloride 107 mEq/L (98-107); Glucose 108 mg/dL (70-105); Osmolality,Calculated 294 (280-300); Sodium 142 mEq/L (136-145); eGFR For African Americans > 60 (> 60); eGFR For Non-African Americans > 60 (> 60)
[2020-05-07] MEDS ORDERED: Isovue-370 500 ML BOTTLE IVP ONE (16:08)
[2020-05-07] MEDS ORDERED: Naloxone 0.4 MG/ML INJ IVP PRN (20:49)
[2020-05-07] MEDS ORDERED: Acetaminophen 325 MG TABLET PO PRN (20:55)
[2020-05-07] MEDS ORDERED: 0.9 % Sodium Chloride 1,000 ML IVC ONE (22:58)
[2020-05-08] MEDS ORDERED: Perflutren Lipid Microsphere 1.3 ML in 0.9 % Sodium Chloride 8.7 ML IVP PRN (00:21)
[2020-05-08 04:35] LABS: Hematocrit 45.3 % (35.3-44.9); Hemoglobin 14.9 g/dL (11.5-15.4); Mean Corpuscular HGB Conc 32.9 g/dL (31.6-35.5); Mean Corpuscular Hemoglobin 31.1 pg (28.0-33.3); Mean Corpuscular Volume 94.6 fL (83.0-100.0); Mean Platelet Volume 10.3 fL (9.4-12.4); Platelet Count 259 K/mcL (140-400); Red Blood Count 4.79 M/mcL (3.82-4.97); Red Cell Distribution Width 11.9 % (11.5-14.5); White Blood Count 8.3 K/mcL (4.3-11.1)
[2020-05-08 04:57] LABS: Chol/HDL Ratio 3.3 (0-4.9)
[2020-05-08 04:58] LABS: BUN/Creatinine Ratio 15 (6-26); Blood Urea Nitrogen 9 mg/dL (8-23); Calcium 8.6 mg/dL (8.6-10.3); Carbon Dioxide 22 mEq/L (23-29); Chloride 110 mEq/L (98-107); Glucose 109 mg/dL (70-105); Magnesium 2.2 mg/dL (1.6-2.6); Osmolality,Calculated 291 (280-300); Phosphorous 2.9 mg/dL (2.7-4.5); Potassium 3.7 mEq/L (3.5-5.1); Sodium 141 mEq/L (136-145); Troponin I < 0.03 ng/mL (< 0.04); eGFR For African Americans > 60 (> 60); eGFR For Non-African Americans > 60 (> 60)
[2020-05-08] MEDS ORDERED: Levalbuterol Neb 1.25 MG/3 ML IH PRN (08:51)
[2020-05-08] MEDS ORDERED: Levalbuterol 1 PUFF INHALER IH PRN (08:51)
[2020-05-08] MEDS ORDERED: Ipratropium Neb 0.5 MG NEBULIZER IH PRN (08:51)
[2020-05-08] MEDS ORDERED: Cyanocobalamin (B-12) 1,000 MCG TABLET PO SCH (09:00)
[2020-05-08] MEDS ORDERED: Fluticasone Propionate Nasal 50 MCG/SPRAY BOTTLE NS SCH (09:00)
[2020-05-08] MEDS ORDERED: Loratadine 10 MG TABLET PO SCH (09:00)
[2020-05-08 09:16] LABS: Estimated Average Glucose 126 mg/dl
[2020-05-08 10:54] VITALS: BP 127/67
[2020-05-08] MEDS ORDERED: Aspirin 81 MG TAB.CHEW PO SCH (11:45)
== END 2020-05-08 17:36 | disposition home or self-care (01) ==
LOC: EMEROOARM 13:44 → 3BNU 13:44 → SUATTDRO 19:44 → 3BNU 20:29
PROVIDERS: ADMIT Family Medicine; ATTEND Internal Medicine

== ENCOUNTER 2020-05-17 12:08 | Observation (INO) ==
[2020-05-17 12:44] LABS: Basophils # 0.1 K/mcL (0.0-0.2); Basophils % 1.1 %; Eosinophils # 0.1 K/mcL (0.0-0.6); Eosinophils % 1.5 %; Hematocrit 46.2 % (35.3-44.9); Hemoglobin 14.9 g/dL (11.5-15.4); Immature Granulocytes % 0.2 % (0-4); Lymphocytes # 1.7 K/mcL (0.6-4.6); Lymphocytes % 25.8 %; Mean Corpuscular HGB Conc 32.3 g/dL (31.6-35.5); Mean Corpuscular Hemoglobin 30.5 pg (28.0-33.3); Mean Corpuscular Volume 94.7 fL (83.0-100.0); Mean Platelet Volume 10.5 fL (9.4-12.4); Monocytes # 0.6 K/mcL (0.0-1.3); Monocytes % 8.7 %; Neutrophils # 4.2 K/mcL (1.6-8.9); Platelet Count 247 K/mcL (140-400); Red Blood Count 4.88 M/mcL (3.82-4.97); Red Cell Distribution Width 11.9 % (11.5-14.5); Segmented Neutrophils % 62.7 %; White Blood Count 6.7 K/mcL (4.3-11.1)
[2020-05-17 12:57] LABS: Bacteria,Urine Few per hpf (None-Few); Bilirubin,Urine Negative (Negative); Blood,Urine Trace (Negative); Clarity,Urine Clear (Clear); Color,Urine Colorless (Yellow); Glucose,Urine (UA) Normal (Normal); Ketones,Urine Negative (Negative); Leukocyte Esterase,Urine Moderate (Negative); Mucus,Urine Few per lpf (None-Few); Nitrite,Urine Negative (Negative); PH,Urine 6.5 pH Units (5.0-8.0); Protein,Urine Negative (Neg-Trace); RBC,Urine 0-3 per hpf (0-3); Specific Gravity,Urine 1.005 (1.010-1.025); Squamous Epithelial Cell,Urine Few per hpf (None-Few); Urobilinogen,Urine Normal (Normal)
[2020-05-17 13:08] LABS: BUN/Creatinine Ratio 15 (6-26); Blood Urea Nitrogen 11 mg/dL (8-23); Calcium 9.2 mg/dL (8.6-10.3); Carbon Dioxide 25 mEq/L (23-29); Chloride 107 mEq/L (98-107); Glucose 93 mg/dL (70-105); Osmolality,Calculated 289 (280-300); Potassium 3.9 mEq/L (3.5-5.1); Sodium 140 mEq/L (136-145); eGFR For African Americans > 60 (> 60); eGFR For Non-African Americans > 60 (> 60)
[2020-05-17 13:09] LABS: Troponin I < 0.03 ng/mL (< 0.04)
[2020-05-17] MEDS ORDERED: Naloxone 0.4 MG/ML INJ IVP PRN (15:37)
[2020-05-17] MEDS ORDERED: Ondansetron 4 MG/2 ML VIAL IVP PRN (15:37)
[2020-05-17] MEDS: *HR* Heparin 5,000 UNIT/ML VIAL SQ SCH (22:17)
[2020-05-18 05:24] LABS: Basophils # 0.1 K/mcL (0.0-0.2); Basophils % 1.2 %; Eosinophils # 0.1 K/mcL (0.0-0.6); Eosinophils % 2.3 %; Hematocrit 43.8 % (35.3-44.9); Hemoglobin 14.2 g/dL (11.5-15.4); Immature Granulocytes % 0.3 % (0-4); Lymphocytes # 1.6 K/mcL (0.6-4.6); Lymphocytes % 28.6 %; Mean Corpuscular HGB Conc 32.4 g/dL (31.6-35.5); Mean Corpuscular Hemoglobin 31.1 pg (28.0-33.3); Mean Corpuscular Volume 95.8 fL (83.0-100.0); Mean Platelet Volume 10.5 fL (9.4-12.4); Monocytes # 0.5 K/mcL (0.0-1.3); Monocytes % 8.7 %; Neutrophils # 3.4 K/mcL (1.6-8.9); Platelet Count 240 K/mcL (140-400); Red Blood Count 4.57 M/mcL (3.82-4.97); Segmented Neutrophils % 58.9 %; White Blood Count 5.7 K/mcL (4.3-11.1)
[2020-05-18 05:40] LABS: BUN/Creatinine Ratio 17 (6-26); Blood Urea Nitrogen 12 mg/dL (8-23); Calcium 8.8 mg/dL (8.6-10.3); Carbon Dioxide 27 mEq/L (23-29); Chloride 108 mEq/L (98-107); Glucose 113 mg/dL (70-105); Magnesium 2.1 mg/dL (1.6-2.6); Osmolality,Calculated 291 (280-300); Phosphorous 3.3 mg/dL (2.7-4.5); Potassium 3.8 mEq/L (3.5-5.1); Sodium 140 mEq/L (136-145); eGFR For African Americans > 60 (> 60); eGFR For Non-African Americans > 60 (> 60)
[2020-05-18 06:05] LABS: Folate > 22.3 ng/mL (3.0-16.0)
[2020-05-18 06:11] LABS: Vitamin B12 188 pg/mL (250-1100)
[2020-05-18] MEDS: *HR* Heparin 5,000 UNIT/ML VIAL SQ SCH (06:21)
[2020-05-18] MEDS ORDERED: hydroCHLOROthiazide 25 MG TABLET PO SCH (09:00)
[2020-05-18] MEDS ORDERED: Fluticasone Propionate Nasal 50 MCG/SPRAY BOTTLE NS SCH (09:00)
[2020-05-18] MEDS ORDERED: Aspirin 81 MG TAB.CHEW PO SCH (09:00)
[2020-05-18] MEDS ORDERED: Loratadine 10 MG TABLET PO SCH (09:00)
[2020-05-18] MEDS ORDERED: Cyanocobalamin (B-12) 1,000 MCG TABLET PO SCH (09:00)
[2020-05-18] MEDS ORDERED: Cholecalciferol (D-3) 1,000 UNIT (25MCG) TABLET PO SCH (09:00)
[2020-05-18 12:40] VITALS: BP 129/80
== END 2020-05-18 14:20 | disposition home or self-care (01) ==
LOC: 3BNU 12:08 → EMEROOARM 12:08 → SUATTDRO 15:31 → 3BNU 16:37
PROVIDERS: ADMIT Family Medicine; ATTEND Internal Medicine

== ENCOUNTER 2020-06-08 04:43 | Inpatient (IN) ==
[2020-06-08] MEDS ORDERED: Ondansetron 4 MG/2 ML VIAL IVP ONE (04:49)
[2020-06-08] MEDS ORDERED: *HR* FentaNYL (PF) 100 MCG/2 ML VIAL IVP ONE (04:52)
[2020-06-08 05:16] LABS: Basophils # 0.1 K/mcL (0.0-0.2); Basophils % 0.4 %; Eosinophils % 0.1 %; Hematocrit 47.8 % (35.3-44.9); Hemoglobin 15.4 g/dL (11.5-15.4); Immature Granulocytes % 0.3 % (0-4); Lymphocytes # 1.3 K/mcL (0.6-4.6); Lymphocytes % 9.3 %; Mean Corpuscular HGB Conc 32.2 g/dL (31.6-35.5); Mean Corpuscular Hemoglobin 30.3 pg (28.0-33.3); Mean Corpuscular Volume 94.1 fL (83.0-100.0); Mean Platelet Volume 10.3 fL (9.4-12.4); Monocytes # 0.9 K/mcL (0.0-1.3); Monocytes % 6.9 %; Neutrophils # 11.4 K/mcL (1.6-8.9); Platelet Count 279 K/mcL (140-400); Red Blood Count 5.08 M/mcL (3.82-4.97); Red Cell Distribution Width 11.7 % (11.5-14.5); White Blood Count 13.7 K/mcL (4.3-11.1)
[2020-06-08] MEDS ORDERED: Ketorolac 15 MG/ML VIAL IVP ONE (05:17)
[2020-06-08 05:21] LABS: Bacteria,Urine Few per hpf (None-Few); Bilirubin,Urine Negative (Negative); Blood,Urine Moderate (Negative); Clarity,Urine Turbid (Clear); Color,Urine Light-Yellow (Yellow); Glucose,Urine (UA) Normal (Normal); Ketones,Urine Trace mg/dL (Negative); Leukocyte Esterase,Urine Large (Negative); Mucus,Urine Few per lpf (None-Few); Nitrite,Urine Negative (Negative); PH,Urine 6.5 pH Units (5.0-8.0); Protein,Urine 30 mg/dL (Neg-Trace); RBC,Urine 15-30 per hpf (0-3); Specific Gravity,Urine 1.019 (1.010-1.025); Squamous Epithelial Cell,Urine Few per hpf (None-Few); Urobilinogen,Urine Normal (Normal); WBC,Urine TNTC per hpf (0-3)
[2020-06-08 05:34] LABS: Alanine Aminotransferase 14 Units/L (7-52); Albumin 4.2 g/dL (3.5-5.7); Albumin/Globulin Ratio 1.3 (1.1-2.2); Alkaline Phosphatase 68 Units/L (34-104); Aspartate Amino Transferase 16 Units/L (13-39); BUN/Creatinine Ratio 15 (6-26); Bilirubin,Direct 0.1 mg/dL (0.0-0.2); Bilirubin,Indirect 0.7 mg/dL (0.0-1.0); Bilirubin,Total 0.8 mg/dL (0.3-1.0); Blood Urea Nitrogen 15 mg/dL (8-23); Calcium 9.3 mg/dL (8.6-10.3); Carbon Dioxide 28 mEq/L (23-29); Chloride 104 mEq/L (98-107); Globulin 3.3 g/dL (2.4-3.5); Glucose 159 mg/dL (70-105); Osmolality,Calculated 288 (280-300); Potassium 3.7 mEq/L (3.5-5.1); Sodium 137 mEq/L (136-145); Total Protein 7.5 g/dL (6.4-8.9); eGFR For African Americans > 60 (> 60); eGFR For Non-African Americans 55 (> 60)
[2020-06-08] MEDS ORDERED: cefTRIAXone 1,000 MG in Water for inj. (sterile) 10 ML IVP ONE ×2 (05:45→07:44)
[2020-06-08] MEDS ORDERED: Naloxone 0.4 MG/ML INJ IVP PRN (07:03)
[2020-06-08] MEDS ORDERED: CefTRIAXone 1,000 MG VIAL IM ONE (07:22)
[2020-06-08 07:34] LABS: Adenovirus Not Detected (Not Detect); Bordetella Pertussis Not Detected (Not Detect); Chlamydophila pneumoniae Not Detected (Not Detect); Coronavirus 229E Not Detected (Not Detect); Coronavirus HKU1 Not Detected (Not Detect); Coronavirus NL63 Not Detected (Not Detect); Coronavirus OC43 Not Detected (Not Detect); Human Metapneumovirus Not Detected (Not Detect); Human Rhinovirus/Enterovirus Not Detected (Not Detect); Influenza A Subtype 2009 H1 Not Detected (Not Detect); Influenza B Not Detected (Not Detect); Mycoplasma pneumoniae Not Detected (Not Detect); Parainfluenza Virus 1 Not Detected (Not Detect); Parainfluenza Virus 2 Not Detected (Not Detect); Parainfluenza Virus 3 Not Detected (Not Detect); Parainfluenza Virus 4 Not Detected (Not Detect); Respiratory Syncytial Virus Not Detected (Not Detect); SARS-CoV-2 Not Detected (Not Detect)
[2020-06-08] MEDS ORDERED: Fluticasone Propionate Nasal 50 MCG/SPRAY BOTTLE NS SCH (09:00)
[2020-06-08] MEDS ORDERED: Morphine Sulfate 2 MG/ML SYRINGE IVP PRN (13:12)
[2020-06-08] MEDS ORDERED: Ketorolac 15 MG/ML VIAL IVP PRN (14:32)
[2020-06-08] MEDS: *HR* Heparin 5,000 UNIT/ML VIAL SQ SCH ×2 (14:34→20:32)
[2020-06-08] MEDS ORDERED: Isovue-300 50ML VIAL ONE (23:41)
[2020-06-08] MEDS ORDERED: *HR* Propofol 200 MG/20 ML VIAL IVP ONE (23:57)
[2020-06-08] MEDS ORDERED: *HR* FentaNYL (PF) 100 MCG/2 ML VIAL ONE (23:57)
[2020-06-08] MEDS ORDERED: Lidocaine -MPF 2% 2 ML VIAL ONE (23:58)
[2020-06-08] MEDS ORDERED: Dexamethasone 4 MG/ML VIAL ONE (23:58)
[2020-06-08] MEDS ORDERED: Ondansetron 4 MG/2 ML VIAL ONE (23:58)
[2020-06-09] MEDS ORDERED: *HR* HYDROmorphone PF 0.5 MG/0.5 ML SYRINGE IVP PRN (00:31)
[2020-06-09] MEDS ORDERED: Ketorolac 15 MG/ML VIAL IVP PRN (01:25)
[2020-06-09] MEDS ORDERED: Naloxone 0.4 MG/ML INJ IVP PRN (01:25)
[2020-06-09] MEDS ORDERED: Acetaminophen 325 MG TABLET PO PRN (01:44)
[2020-06-09 04:55] LABS: Basophils % 0.1 %; Hematocrit 40.9 % (35.3-44.9); Immature Granulocytes % 0.4 % (0-4); Lymphocytes # 0.3 K/mcL (0.6-4.6); Lymphocytes % 2.1 %; Mean Corpuscular HGB Conc 32.3 g/dL (31.6-35.5); Mean Corpuscular Hemoglobin 31.4 pg (28.0-33.3); Mean Corpuscular Volume 97.4 fL (83.0-100.0); Mean Platelet Volume 10.3 fL (9.4-12.4); Monocytes # 0.6 K/mcL (0.0-1.3); Monocytes % 4.6 %; Neutrophils # 12.7 K/mcL (1.6-8.9); Platelet Count 193 K/mcL (140-400); Red Cell Distribution Width 12.2 % (11.5-14.5); Segmented Neutrophils % 92.8 %; White Blood Count 13.7 K/mcL (4.3-11.1)
[2020-06-09 05:04] LABS: Hemoglobin 13.2 g/dL (11.5-15.4)
[2020-06-09 05:14] LABS: BUN/Creatinine Ratio 18 (6-26); Blood Urea Nitrogen 15 mg/dL (8-23); Calcium 8.5 mg/dL (8.6-10.3); Carbon Dioxide 24 mEq/L (23-29); Chloride 107 mEq/L (98-107); Glucose 143 mg/dL (70-105); Osmolality,Calculated 289 (280-300); Potassium 3.8 mEq/L (3.5-5.1); Sodium 138 mEq/L (136-145); eGFR For African Americans > 60 (> 60); eGFR For Non-African Americans > 60 (> 60)
[2020-06-09] MEDS: *HR* Heparin 5,000 UNIT/ML VIAL SQ SCH ×3 (05:32→21:01)
[2020-06-09] MEDS ORDERED: cefTRIAXone 2,000 MG in Water for inj. (sterile) 20 ML IVP SCH (08:00)
[2020-06-09] MEDS: Fluticasone Propionate Nasal 50 MCG/SPRAY BOTTLE NS SCH (08:31)
[2020-06-09] MEDS: cefTRIAXone 2,000 MG in Water for inj. (sterile) 20 ML IVP SCH (08:31)
[2020-06-09] MEDS: Aspirin 81 MG TAB.CHEW PO SCH (08:31)
[2020-06-09] MEDS ORDERED: Aspirin 81 MG TAB.CHEW PO SCH (09:00)
[2020-06-09] MEDS ORDERED: hydroCHLOROthiazide 25 MG TABLET PO SCH ×2 (09:00)
[2020-06-10 05:17] LABS: Basophils # 0.1 K/mcL (0.0-0.2); Basophils % 0.5 %; Eosinophils # 0.1 K/mcL (0.0-0.6); Eosinophils % 0.5 %; Hematocrit 40.9 % (35.3-44.9); Hemoglobin 12.8 g/dL (11.5-15.4); Immature Granulocytes % 0.4 % (0-4); Lymphocytes % 10.1 %; Mean Corpuscular HGB Conc 31.3 g/dL (31.6-35.5); Mean Corpuscular Hemoglobin 30.5 pg (28.0-33.3); Mean Corpuscular Volume 97.6 fL (83.0-100.0); Mean Platelet Volume 10.5 fL (9.4-12.4); Monocytes % 9.9 %; Neutrophils # 7.5 K/mcL (1.6-8.9); Platelet Count 197 K/mcL (140-400); Red Blood Count 4.19 M/mcL (3.82-4.97); Red Cell Distribution Width 12.1 % (11.5-14.5); Segmented Neutrophils % 78.6 %; White Blood Count 9.6 K/mcL (4.3-11.1)
[2020-06-10] MEDS: *HR* Heparin 5,000 UNIT/ML VIAL SQ SCH (05:17)
[2020-06-10 05:30] LABS: BUN/Creatinine Ratio 24 (6-26); Blood Urea Nitrogen 20 mg/dL (8-23); Calcium 8.4 mg/dL (8.6-10.3); Carbon Dioxide 27 mEq/L (23-29); Chloride 107 mEq/L (98-107); Glucose 120 mg/dL (70-105); Osmolality,Calculated 294 (280-300); Potassium 3.8 mEq/L (3.5-5.1); Sodium 140 mEq/L (136-145); eGFR For African Americans > 60 (> 60); eGFR For Non-African Americans > 60 (> 60)
[2020-06-10 06:54] VITALS: BP 153/88
[2020-06-10] MEDS: cefTRIAXone 2,000 MG in Water for inj. (sterile) 20 ML IVP SCH (07:26)
[2020-06-10] MEDS: Aspirin 81 MG TAB.CHEW PO SCH (07:27)
[2020-06-10] MEDS: Fluticasone Propionate Nasal 50 MCG/SPRAY BOTTLE NS SCH (07:28)
[2020-06-10] MEDS ORDERED: Cyanocobalamin (B-12) 1,000 MCG/ML VIAL IM ONE (08:30)
[2020-06-11] MEDS ORDERED: Cefdinir 300 MG CAPSULE PO SCH (09:00)
== END 2020-06-10 12:07 | disposition home or self-care (01) | DRG 659 ==
LOC: EMEROOARM 04:43 → 3ANU 04:43 → SUATTDRO 06-09 14:32
PROVIDERS: ADMIT Student in an Organized Health Care Education/Training Program; ATTEND Family Medicine

== ENCOUNTER 2020-11-22 | Observation (INO) ==
[2020-11-22 01:04] LABS: Basophils # 0.1 K/mcL (0.0-0.2); Basophils % 0.8 %; Eosinophils # 0.1 K/mcL (0.0-0.6); Eosinophils % 1.3 %; Hematocrit 47.7 % (35.3-44.9); Hemoglobin 15.4 g/dL (11.5-15.4); Immature Granulocytes % 0.3 % (0-4); Lymphocytes # 1.3 K/mcL (0.6-4.6); Lymphocytes % 18.8 %; Mean Corpuscular HGB Conc 32.3 g/dL (31.6-35.5); Mean Corpuscular Volume 92.8 fL (83.0-100.0); Mean Platelet Volume 10.3 fL (9.4-12.4); Monocytes # 0.5 K/mcL (0.0-1.3); Monocytes % 7.1 %; Neutrophils # 5.1 K/mcL (1.6-8.9); Platelet Count 235 K/mcL (140-400); Red Blood Count 5.14 M/mcL (3.82-4.97); Red Cell Distribution Width 12.2 % (11.5-14.5); Segmented Neutrophils % 71.7 %; White Blood Count 7.1 K/mcL (4.3-11.1)
[2020-11-22 01:24] LABS: BUN/Creatinine Ratio 17 (6-26); Blood Urea Nitrogen 12 mg/dL (8-23); Calcium 9.4 mg/dL (8.6-10.3); Carbon Dioxide 25 mEq/L (23-29); Chloride 107 mEq/L (98-107); Glucose 131 mg/dL (70-105); Osmolality,Calculated 296 (280-300); Potassium 3.8 mEq/L (3.5-5.1); Sodium 142 mEq/L (136-145); Troponin I < 0.03 ng/mL (< 0.04); eGFR For African Americans > 60 (> 60); eGFR For Non-African Americans > 60 (> 60)
[2020-11-22] MEDS ORDERED: Aspirin 81 MG TAB.CHEW PO ONE (01:43)
[2020-11-22] MEDS ORDERED: Naloxone 0.4 MG/ML INJ IVP PRN (03:33)
[2020-11-22] MEDS ORDERED: Ondansetron 4 MG/2 ML VIAL IVP PRN (03:33)
[2020-11-22] MEDS ORDERED: Acetaminophen 325 MG TABLET PO PRN (03:33)
[2020-11-22] MEDS ORDERED: Melatonin 3 MG TABLET PO PRN (03:33)
[2020-11-22] MEDS: *HR* Heparin 5,000 UNIT/ML VIAL SQ SCH ×2 (06:10→17:58)
[2020-11-22] MEDS: amLODIPine 5 MG TABLET PO SCH (08:15)
[2020-11-22] MEDS: Aspirin Enteric Coated 81 MG Tablet PO SCH (08:15)
[2020-11-22] MEDS: lisinopriL 5 MG TABLET PO SCH (09:50)
[2020-11-22] MEDS ORDERED: Loratadine 10 MG TABLET PO PRN (13:28)
[2020-11-22] MEDS ORDERED: Sennosides/Docusate Sodium TABLET PO PRN (16:42)
[2020-11-23] MEDS: *HR* Heparin 5,000 UNIT/ML VIAL SQ SCH (05:28)
[2020-11-23 06:51] VITALS: BP 129/73
[2020-11-23] MEDS: Aspirin Enteric Coated 81 MG Tablet PO SCH (07:40)
[2020-11-23] MEDS: amLODIPine 5 MG TABLET PO SCH (07:41)
[2020-11-23] MEDS: lisinopriL 5 MG TABLET PO SCH (07:41)
[2020-11-23] MEDS ORDERED: Multivit/Ca/Min/Fe/FA 1 TAB TABLET PO SCH (09:00)
[2020-11-23] MEDS ORDERED: Cholecalciferol (D-3) 1,000 UNIT (25MCG) TABLET PO SCH (09:00)
[2020-12-18] MEDS ORDERED: Cyanocobalamin (B-12) 1,000 MCG/ML VIAL IM SCH (09:00)
== END 2020-11-23 10:16 | disposition home or self-care (01) ==
LOC: 3BNU → EMEROOARM → SUATTDRO 02:31 → 3BNU 03:41
PROVIDERS: ADMIT Family Medicine; ATTEND Internal Medicine

== ENCOUNTER 2021-02-12 19:45 | Inpatient (IN) ==
[2021-02-12] MEDS ORDERED: Isovue-370 500 ML BOTTLE IVP ONE (21:05)
[2021-02-12 21:56] LABS: Basophils # 0.1 K/mcL (0.0-0.2); Basophils % 0.4 %; Eosinophils # 0.2 K/mcL (0.0-0.6); Eosinophils % 1.7 %; Hematocrit 43.1 % (35.3-44.9); Hemoglobin 13.8 g/dL (11.5-15.4); Immature Granulocytes % 0.3 % (0-4); Lymphocytes # 1.8 K/mcL (0.6-4.6); Lymphocytes % 15.1 %; Mean Corpuscular Hemoglobin 30.6 pg (28.0-33.3); Mean Corpuscular Volume 95.6 fL (83.0-100.0); Mean Platelet Volume 10.4 fL (9.4-12.4); Monocytes # 1.2 K/mcL (0.0-1.3); Monocytes % 9.6 %; Neutrophils # 8.8 K/mcL (1.6-8.9); Platelet Count 249 K/mcL (140-400); Red Blood Count 4.51 M/mcL (3.82-4.97); Red Cell Distribution Width 12.2 % (11.5-14.5); Segmented Neutrophils % 72.9 %; White Blood Count 12.1 K/mcL (4.3-11.1)
[2021-02-12 22:03] LABS: INR 1.1; Prothrombin Time 13.2 Seconds (9.4-12.1)
[2021-02-12 22:06] LABS: Activated Partial Thrombo Time 26.8 Seconds (26.0-36.0)
[2021-02-12 22:19] LABS: Alanine Aminotransferase 10 Units/L (7-52); Albumin 3.8 g/dL (3.5-5.7); Albumin/Globulin Ratio 1.3 (1.1-2.2); Alkaline Phosphatase 48 Units/L (34-104); Aspartate Amino Transferase 12 Units/L (13-39); BUN/Creatinine Ratio 17 (6-26); Bilirubin,Direct 0.2 mg/dL (0.0-0.2); Bilirubin,Total 1.2 mg/dL (0.3-1.0); Blood Urea Nitrogen 14 mg/dL (8-23); Calcium 8.9 mg/dL (8.6-10.3); Carbon Dioxide 24 mEq/L (23-29); Chloride 104 mEq/L (98-107); Glucose 109 mg/dL (70-105); Lipase 21 Units/L (11-82); Osmolality,Calculated 285 (280-300); Potassium 3.7 mEq/L (3.5-5.1); Sodium 137 mEq/L (136-145); Total Protein 6.8 g/dL (6.4-8.9); Troponin I < 0.03 ng/mL (< 0.04); eGFR For African Americans > 60 (> 60); eGFR For Non-African Americans > 60 (> 60)
[2021-02-13] MEDS ORDERED: Lidocaine -MPF 2% 5 ML VIAL ONE (00:50)
[2021-02-13] MEDS ORDERED: Ketorolac 15 MG/ML VIAL IVP ONE (02:33)
[2021-02-13 03:15] LABS: Bilirubin,Urine Negative (Negative); Blood,Urine Moderate (Negative); Clarity,Urine Clear (Clear); Color,Urine Colorless (Yellow); Glucose,Urine (UA) Normal (Normal); Ketones,Urine 40 mg/dL (Negative); Leukocyte Esterase,Urine Negative (Negative); Nitrite,Urine Negative (Negative); Protein,Urine Negative (Neg-Trace); Specific Gravity,Urine > 1.030 (1.010-1.025); Squamous Epithelial Cell,Urine Few per hpf (None-Few); Urobilinogen,Urine Normal (Normal); WBC,Urine 0-3 per hpf (0-3)
[2021-02-13] MEDS ORDERED: Melatonin 3 MG TABLET PO PRN (04:19)
[2021-02-13] MEDS ORDERED: Naloxone 0.4 MG/ML INJ IVP PRN (04:19)
[2021-02-13] MEDS ORDERED: Ondansetron 4 MG/2 ML VIAL IVP PRN (04:19)
[2021-02-13] MEDS: Ketorolac 15 MG/ML VIAL IVP PRN ×2 (07:47→13:43)
[2021-02-13] MEDS ORDERED: ALPRAZolam 0.25 MG TABLET PO PRN (12:46)
[2021-02-13] MEDS: cefTRIAXone 1,000 MG in Water for inj. (sterile) 10 ML IVP SCH (13:17)
[2021-02-13] MEDS: Azithromycin 500 MG in 0.9 % Sodium Chloride 250 ML IVPB SCH (13:21)
[2021-02-13] MEDS: predniSONE 20 MG TABLET PO SCH (13:21)
[2021-02-13] MEDS ORDERED: Loratadine 10 MG TABLET PO PRN (13:46)
[2021-02-13] MEDS: Aspirin 81 MG TAB.CHEW PO SCH (15:03)
[2021-02-13] MEDS: amLODIPine 5 MG TABLET PO SCH ×2 (15:03→15:14)
[2021-02-14 02:35] LABS: Hematocrit 37.9 % (35.3-44.9); Mean Corpuscular HGB Conc 32.2 g/dL (31.6-35.5); Mean Corpuscular Hemoglobin 30.7 pg (28.0-33.3); Mean Corpuscular Volume 95.2 fL (83.0-100.0); Mean Platelet Volume 10.4 fL (9.4-12.4); Platelet Count 234 K/mcL (140-400); Red Blood Count 3.98 M/mcL (3.82-4.97); Red Cell Distribution Width 11.9 % (11.5-14.5); White Blood Count 8.4 K/mcL (4.3-11.1)
[2021-02-14 02:39] LABS: Hemoglobin 12.2 g/dL (11.5-15.4)
[2021-02-14 02:56] LABS: BUN/Creatinine Ratio 17 (6-26); Blood Urea Nitrogen 11 mg/dL (8-23); Calcium 8.7 mg/dL (8.6-10.3); Carbon Dioxide 29 mEq/L (23-29); Chloride 106 mEq/L (98-107); Glucose 111 mg/dL (70-105); Osmolality,Calculated 288 (280-300); Potassium 4.2 mEq/L (3.5-5.1); Sodium 139 mEq/L (136-145); eGFR For African Americans > 60 (> 60); eGFR For Non-African Americans > 60 (> 60)
[2021-02-14] MEDS ORDERED: lisinopriL 5 MG TABLET PO SCH ×2 (09:00→21:00)
[2021-02-14] MEDS: Aspirin 81 MG TAB.CHEW PO SCH (09:20)
[2021-02-14] MEDS: Cholecalciferol (D-3) 1,000 UNIT (25MCG) TABLET PO SCH (09:20)
[2021-02-14] MEDS: predniSONE 20 MG TABLET PO SCH (09:21)
[2021-02-14] MEDS: cefTRIAXone 1,000 MG in Water for inj. (sterile) 10 ML IVP SCH (09:24)
[2021-02-14] MEDS: Azithromycin 500 MG in 0.9 % Sodium Chloride 250 ML IVPB SCH (10:27)
[2021-02-15] MEDS: Ketorolac 15 MG/ML VIAL IVP PRN ×2 (06:06→13:40)
[2021-02-15] MEDS: Cholecalciferol (D-3) 1,000 UNIT (25MCG) TABLET PO SCH (07:49)
[2021-02-15] MEDS: cefTRIAXone 1,000 MG in Water for inj. (sterile) 10 ML IVP SCH (07:49)
[2021-02-15] MEDS: Aspirin 81 MG TAB.CHEW PO SCH (07:50)
[2021-02-15] MEDS: predniSONE 20 MG TABLET PO SCH (07:50)
[2021-02-15 10:48] VITALS: BP 134/77
[2021-02-15] MEDS: Azithromycin 500 MG in 0.9 % Sodium Chloride 250 ML IVPB SCH (11:12)
[2021-02-15] MEDS ORDERED: Azithromycin 250 MG TABLET PO SCH (11:30)
== END 2021-02-15 16:28 | disposition home or self-care (01) | DRG 199 ==
LOC: EMEROOARM 19:45 → 2ANU 19:45 → SUATTDRO 02-13 03:16 → 2ANU 02-13 03:56
PROVIDERS: ADMIT Internal Medicine; ATTEND Internal Medicine

== ENCOUNTER 2021-09-07 09:35 | Inpatient (IN) ==
[2021-09-07 10:10] LABS: Basophils % 0.4 %; Hematocrit 42.8 % (35.3-44.9); Hemoglobin 13.6 g/dL (11.5-15.4); Immature Granulocytes % 0.6 % (0-4); Lymphocytes # 0.8 K/mcL (0.6-4.6); Lymphocytes % 15.9 %; Mean Corpuscular HGB Conc 31.8 g/dL (31.6-35.5); Mean Corpuscular Volume 94.5 fL (83.0-100.0); Mean Platelet Volume 9.6 fL (9.4-12.4); Monocytes # 0.3 K/mcL (0.0-1.3); Monocytes % 7.1 %; Neutrophils # 3.6 K/mcL (1.6-8.9); Platelet Count 194 K/mcL (140-400); Red Blood Count 4.53 M/mcL (3.82-4.97); Red Cell Distribution Width 12.6 % (11.5-14.5); White Blood Count 4.8 K/mcL (4.3-11.1)
[2021-09-07 10:23] LABS: INR 1.2; Prothrombin Time 13.4 Seconds (9.4-12.1)
[2021-09-07] MEDS ORDERED: Ipratropium/Albuterol Neb 3 ML IH ONE (10:35)
[2021-09-07 10:36] LABS: Alanine Aminotransferase 19 Units/L (7-52); Albumin 3.2 g/dL (3.5-5.7); Alkaline Phosphatase 38 Units/L (34-104); Aspartate Amino Transferase 43 Units/L (13-39); BUN/Creatinine Ratio 15 (6-26); Bilirubin,Direct 0.1 mg/dL (0.0-0.2); Bilirubin,Indirect 0.4 mg/dL (0.0-1.0); Bilirubin,Total 0.5 mg/dL (0.3-1.0); Blood Urea Nitrogen 10 mg/dL (8-23); C-Reactive Protein 68 mg/L (Less than 10); Calcium 8.3 mg/dL (8.6-10.3); Carbon Dioxide 27 mEq/L (23-29); Chloride 100 mEq/L (98-107); Globulin 3.3 g/dL (2.4-3.5); Glucose 108 mg/dL (70-105); Lactate Dehydrogenase 391 Units/L (140-271); Magnesium 1.8 mg/dL (1.6-2.6); Osmolality,Calculated 282 (280-300); Phosphorous 2.4 mg/dL (2.7-4.5); Potassium 3.2 mEq/L (3.5-5.1); Sodium 136 mEq/L (136-145); Total Protein 6.5 g/dL (6.4-8.9); Troponin I 0.03 ng/mL (< 0.04); eGFR For African Americans > 60 (> 60); eGFR For Non-African Americans > 60 (> 60)
[2021-09-07] MEDS ORDERED: Potassium Chloride Elixir 20 MEQ/15 ML UDC PO ONE ×2 (11:32→23:19)
[2021-09-07] MEDS ORDERED: Naloxone 0.4 MG/ML INJ IVP PRN (12:26)
[2021-09-07] MEDS ORDERED: Melatonin 3 MG TABLET PO PRN (12:26)
[2021-09-07] MEDS ORDERED: Acetaminophen 325 MG TABLET PO PRN (12:29)
[2021-09-07] MEDS ORDERED: Furosemide 20 MG/2 ML VIAL IVP ONE (13:40)
[2021-09-07] MEDS: Loratadine 10 MG TABLET PO SCH (14:14)
[2021-09-07] MEDS ORDERED: Benzonatate 100 MG CAPSULE PO PRN (14:57)
[2021-09-07] MEDS: Budesonide/Formoterol 160/4.5 1 PUFF INH IH SCH ×2 (14:58→20:36)
[2021-09-07 15:01] LABS: Ferritin 1353 ng/mL (10-120)
[2021-09-07] MEDS: Levalbuterol 1 PUFF INHALER IH SCH ×2 (16:27→20:35)
[2021-09-07 16:57] LABS: Chol/HDL Ratio 2.6 (0-4.9); Cholesterol 77 mg/dL (< 200); HDL Cholesterol 30 mg/dL (40-59); LDL Cholesterol,Calculated 32 mg/dL (< 100); Triglycerides 74 mg/dL (< 150)
[2021-09-07 21:41] LABS: Bilirubin,Urine Negative (Negative); Blood,Urine Trace (Negative); Clarity,Urine Clear (Clear); Color,Urine Yellow (Yellow); Glucose,Urine (UA) Normal (Normal); Hyaline Casts,Urine Few per lpf (None Seen); Ketones,Urine 150 mg/dL (Negative); Leukocyte Esterase,Urine Negative (Negative); Mucus,Urine Few per lpf (None-Few); Nitrite,Urine Negative (Negative); Protein,Urine 70 mg/dL (Neg-Trace); RBC,Urine 0-3 per hpf (0-3); Specific Gravity,Urine 1.019 (1.010-1.025); WBC,Urine 0-3 per hpf (0-3)
[2021-09-07 23:04] LABS: Basophils % 0.5 %; Hematocrit 42.8 % (35.3-44.9); Hemoglobin 13.9 g/dL (11.5-15.4); Immature Granulocytes % 0.5 % (0-4); Lymphocytes # 0.6 K/mcL (0.6-4.6); Lymphocytes % 15.4 %; Mean Corpuscular HGB Conc 32.5 g/dL (31.6-35.5); Mean Corpuscular Hemoglobin 30.3 pg (28.0-33.3); Mean Corpuscular Volume 93.4 fL (83.0-100.0); Mean Platelet Volume 9.7 fL (9.4-12.4); Monocytes # 0.2 K/mcL (0.0-1.3); Monocytes % 5.8 %; Neutrophils # 2.8 K/mcL (1.6-8.9); Platelet Count 223 K/mcL (140-400); Red Blood Count 4.58 M/mcL (3.82-4.97); Red Cell Distribution Width 12.4 % (11.5-14.5); Segmented Neutrophils % 77.8 %; White Blood Count 3.6 K/mcL (4.3-11.1)
[2021-09-07 23:19] LABS: BUN/Creatinine Ratio 21 (6-26); Blood Urea Nitrogen 12 mg/dL (8-23); Calcium 8.7 mg/dL (8.6-10.3); Carbon Dioxide 30 mEq/L (23-29); Chloride 99 mEq/L (98-107); Glucose 159 mg/dL (70-105); Magnesium 1.9 mg/dL (1.6-2.6); Osmolality,Calculated 285 (280-300); Phosphorous 2.5 mg/dL (2.7-4.5); Potassium 3.2 mEq/L (3.5-5.1); Sodium 136 mEq/L (136-145); eGFR For African Americans > 60 (> 60); eGFR For Non-African Americans > 60 (> 60)
[2021-09-07] MEDS ORDERED: Magnesium Sulfate 1 GM/102 ML PIGGYBACK IVPB ONE (23:19)
[2021-09-07 23:31] LABS: Large Platelets Present (Not Present); Reactive Lymphocytes Present (Not Present); Smudge Cells Present (Not Present)
[2021-09-08] MEDS ORDERED: Potassium Phosphate 44 MEQ in 0.9 % Sodium Chloride 250 ML IVPB ONE (00:26)
[2021-09-08] MEDS: Levalbuterol 1 PUFF INHALER IH SCH ×4 (03:48→18:56)
[2021-09-08 05:34] LABS: Basophils % 0.4 %; Hematocrit 44.9 % (35.3-44.9); Immature Granulocytes % 0.7 % (0-4); Lymphocytes # 0.7 K/mcL (0.6-4.6); Lymphocytes % 15.6 %; Mean Corpuscular HGB Conc 31.2 g/dL (31.6-35.5); Mean Corpuscular Hemoglobin 29.4 pg (28.0-33.3); Mean Corpuscular Volume 94.3 fL (83.0-100.0); Mean Platelet Volume 9.8 fL (9.4-12.4); Monocytes # 0.4 K/mcL (0.0-1.3); Monocytes % 8.6 %; Neutrophils # 3.4 K/mcL (1.6-8.9); Platelet Count 251 K/mcL (140-400); Red Blood Count 4.76 M/mcL (3.82-4.97); Red Cell Distribution Width 12.5 % (11.5-14.5); Segmented Neutrophils % 74.7 %; White Blood Count 4.5 K/mcL (4.3-11.1)
[2021-09-08 05:39] LABS: INR 1.2; Prothrombin Time 13.8 Seconds (9.4-12.1)
[2021-09-08] MEDS: *HR* Enoxaparin 40 MG/0.4 ML SYRINGE SQ SCH (05:53)
[2021-09-08 06:23] LABS: Platelet Estimate Normal (Normal)
[2021-09-08] MEDS: Budesonide/Formoterol 160/4.5 1 PUFF INH IH SCH ×2 (07:26→18:56)
[2021-09-08] MEDS ORDERED: Amoxicillin/Clavulanate 500 MG TABLET PO SCH (08:00)
[2021-09-08 08:02] LABS: BUN/Creatinine Ratio 21 (6-26); Blood Urea Nitrogen 14 mg/dL (8-23); C-Reactive Protein 78 mg/L (Less than 10); Calcium 8.6 mg/dL (8.6-10.3); Carbon Dioxide 29 mEq/L (23-29); Chloride 98 mEq/L (98-107); Glucose 136 mg/dL (70-105); Magnesium 2.4 mg/dL (1.6-2.6); Osmolality,Calculated 287 (280-300); Potassium 3.5 mEq/L (3.5-5.1); Sodium 137 mEq/L (136-145); eGFR For African Americans > 60 (> 60); eGFR For Non-African Americans > 60 (> 60)
[2021-09-08] MEDS ORDERED: lisinopriL 5 MG TABLET PO SCH (09:00)
[2021-09-08] MEDS ORDERED: dexAMETHasone 4 MG TABLET PO SCH (09:00)
[2021-09-08] MEDS ORDERED: Dexamethasone Sodium Phos/PF 10 MG/ML VIAL IVP SCH (09:00)
[2021-09-08] MEDS: Aspirin 81 MG TAB.CHEW PO SCH (09:26)
[2021-09-08] MEDS: Loratadine 10 MG TABLET PO SCH (09:37)
[2021-09-08] MEDS: Dexamethasone Sodium Phos/PF 10 MG/ML VIAL IVP SCH (09:38)
[2021-09-08] MEDS: lisinopriL 5 MG TABLET PO SCH (19:55)
[2021-09-09 02:11] LABS: ABG Base Excess 6 mEq/L (-2 to 3); ABG HCO3 32 mEq/L (21-27); ABG Oxygen Saturation 86 % (95-98); ABG PCO2 49 mmHg (35-45); ABG PH 7.42 pH Units (7.32-7.45); ABG PO2 51 mmHg (85-104); ABG TCO2 34 mEq/L (20-26)
[2021-09-09] MEDS: Levalbuterol 1 PUFF INHALER IH SCH ×4 (03:38→19:46)
[2021-09-09 06:00] LABS: Hematocrit 42.4 % (35.3-44.9); Hemoglobin 13.7 g/dL (11.5-15.4); Mean Corpuscular HGB Conc 32.3 g/dL (31.6-35.5); Mean Platelet Volume 9.8 fL (9.4-12.4); Platelet Count 299 K/mcL (140-400); Red Blood Count 4.56 M/mcL (3.82-4.97); Red Cell Distribution Width 12.4 % (11.5-14.5)
[2021-09-09 06:05] LABS: BUN/Creatinine Ratio 33 (6-26); Blood Urea Nitrogen 23 mg/dL (8-23); Calcium 8.6 mg/dL (8.6-10.3); Carbon Dioxide 34 mEq/L (23-29); Chloride 102 mEq/L (98-107); Glucose 143 mg/dL (70-105); Osmolality,Calculated 302 (280-300); Potassium 3.8 mEq/L (3.5-5.1); Sodium 143 mEq/L (136-145); eGFR For African Americans > 60 (> 60); eGFR For Non-African Americans > 60 (> 60)
[2021-09-09 06:08] LABS: White Blood Count 9.8 K/mcL (4.3-11.1)
[2021-09-09] MEDS: *HR* Enoxaparin 40 MG/0.4 ML SYRINGE SQ SCH (06:08)
[2021-09-09] MEDS: Loratadine 10 MG TABLET PO SCH (08:02)
[2021-09-09] MEDS: Aspirin 81 MG TAB.CHEW PO SCH (08:03)
[2021-09-09] MEDS: Dexamethasone Sodium Phos/PF 10 MG/ML VIAL IVP SCH (08:03)
[2021-09-09] MEDS: Budesonide/Formoterol 160/4.5 1 PUFF INH IH SCH ×2 (08:06→19:46)
[2021-09-09] MEDS ORDERED: Albumin 25% 25gram/100mL 25 GM/100 ML IV.SOLN IVPB ONE (15:00)
[2021-09-09] MEDS: hydrOXYzine pamoate 25 MG CAPSULE PO PRN (17:41)
[2021-09-09] MEDS: Furosemide 40 MG/4 ML VIAL IVP SCH (18:20)
[2021-09-09] MEDS: lisinopriL 5 MG TABLET PO SCH (21:58)
[2021-09-10 03:19] LABS: Hematocrit 41.4 % (35.3-44.9); Hemoglobin 13.5 g/dL (11.5-15.4); Mean Corpuscular HGB Conc 32.6 g/dL (31.6-35.5); Mean Corpuscular Hemoglobin 30.6 pg (28.0-33.3); Mean Corpuscular Volume 93.9 fL (83.0-100.0); Mean Platelet Volume 9.8 fL (9.4-12.4); Platelet Count 355 K/mcL (140-400); Red Blood Count 4.41 M/mcL (3.82-4.97); Red Cell Distribution Width 12.4 % (11.5-14.5); White Blood Count 11.6 K/mcL (4.3-11.1)
[2021-09-10] MEDS: Levalbuterol 1 PUFF INHALER IH SCH ×4 (03:38→20:33)
[2021-09-10 03:44] LABS: BUN/Creatinine Ratio 35 (6-26); Blood Urea Nitrogen 27 mg/dL (8-23); Calcium 8.8 mg/dL (8.6-10.3); Carbon Dioxide 32 mEq/L (23-29); Chloride 101 mEq/L (98-107); Glucose 145 mg/dL (70-105); Magnesium 2.3 mg/dL (1.6-2.6); Osmolality,Calculated 308 (280-300); Phosphorous 3.5 mg/dL (2.7-4.5); Potassium 3.3 mEq/L (3.5-5.1); Sodium 145 mEq/L (136-145); eGFR For African Americans > 60 (> 60); eGFR For Non-African Americans > 60 (> 60)
[2021-09-10] MEDS: *HR* Enoxaparin 40 MG/0.4 ML SYRINGE SQ SCH (05:01)
[2021-09-10] MEDS: hydrOXYzine pamoate 25 MG CAPSULE PO PRN (05:56)
[2021-09-10] MEDS ORDERED: Potassium Chloride Elixir 20 MEQ/15 ML UDC PO ONE (07:24)
[2021-09-10] MEDS: Budesonide/Formoterol 160/4.5 1 PUFF INH IH SCH ×2 (08:39→20:32)
[2021-09-10] MEDS: Aspirin 81 MG TAB.CHEW PO SCH (11:33)
[2021-09-10] MEDS: Furosemide 40 MG/4 ML VIAL IVP SCH (11:34)
[2021-09-10] MEDS: Dexamethasone Sodium Phos/PF 10 MG/ML VIAL IVP SCH (11:34)
[2021-09-10] MEDS: Loratadine 10 MG TABLET PO SCH (11:34)
[2021-09-10] MEDS: lisinopriL 5 MG TABLET PO SCH (20:18)
[2021-09-11] MEDS ORDERED: Saline Nasal Spray 44 ML BOTTLE NS PRN (00:31)
[2021-09-11] MEDS: hydrOXYzine pamoate 25 MG CAPSULE PO PRN ×2 (01:15→08:36)
[2021-09-11] MEDS ORDERED: *HR* LORazepam 2 MG/ML VIAL IVP PRN (02:32)
[2021-09-11] MEDS: Levalbuterol 1 PUFF INHALER IH SCH ×4 (02:54→20:08)
[2021-09-11] MEDS: *HR* Enoxaparin 40 MG/0.4 ML SYRINGE SQ SCH (04:23)
[2021-09-11] MEDS ORDERED: ALPRAZolam 0.5 MG TABLET PO ONE (06:16)
[2021-09-11] MEDS: Aspirin 81 MG TAB.CHEW PO SCH (08:35)
[2021-09-11] MEDS: Loratadine 10 MG TABLET PO SCH (08:36)
[2021-09-11] MEDS: Dexamethasone Sodium Phos/PF 10 MG/ML VIAL IVP SCH (08:36)
[2021-09-11] MEDS: Furosemide 40 MG/4 ML VIAL IVP SCH (08:37)
[2021-09-11 09:24] LABS: Hematocrit 45.5 % (35.3-44.9); Hemoglobin 14.6 g/dL (11.5-15.4); Mean Corpuscular HGB Conc 32.1 g/dL (31.6-35.5); Mean Corpuscular Hemoglobin 30.2 pg (28.0-33.3); Mean Corpuscular Volume 94.2 fL (83.0-100.0); Mean Platelet Volume 9.8 fL (9.4-12.4); Platelet Count 354 K/mcL (140-400); Red Blood Count 4.83 M/mcL (3.82-4.97); Red Cell Distribution Width 12.4 % (11.5-14.5); White Blood Count 13.4 K/mcL (4.3-11.1)
[2021-09-11 09:40] LABS: BUN/Creatinine Ratio 34 (6-26); Blood Urea Nitrogen 26 mg/dL (8-23); Calcium 8.9 mg/dL (8.6-10.3); Carbon Dioxide 35 mEq/L (23-29); Chloride 99 mEq/L (98-107); Glucose 115 mg/dL (70-105); Osmolality,Calculated 304 (280-300); Potassium 2.9 mEq/L (3.5-5.1); Sodium 144 mEq/L (136-145); eGFR For African Americans > 60 (> 60); eGFR For Non-African Americans > 60 (> 60)
[2021-09-11] MEDS: Budesonide/Formoterol 160/4.5 1 PUFF INH IH SCH ×2 (10:37→20:09)
[2021-09-11] MEDS: Acetylcysteine 10% 2 ML INHSOL IH SCH ×2 (15:27→20:23)
[2021-09-11] MEDS: Ipratropium Neb 0.5 MG NEBULIZER IH PRN ×2 (15:28→20:07)
[2021-09-11] MEDS: lisinopriL 5 MG TABLET PO SCH (19:37)
[2021-09-12] MEDS: Ipratropium Neb 0.5 MG NEBULIZER IH PRN ×4 (03:51→20:25)
[2021-09-12] MEDS: Levalbuterol 1 PUFF INHALER IH SCH ×4 (03:51→20:25)
[2021-09-12] MEDS: Acetylcysteine 10% 2 ML INHSOL IH SCH ×4 (03:51→20:25)
[2021-09-12] MEDS: *HR* Enoxaparin 40 MG/0.4 ML SYRINGE SQ SCH (06:15)
[2021-09-12] MEDS: Budesonide/Formoterol 160/4.5 1 PUFF INH IH SCH ×2 (09:16→20:25)
[2021-09-12] MEDS: Loratadine 10 MG TABLET PO SCH (09:36)
[2021-09-12] MEDS: Furosemide 40 MG/4 ML VIAL IVP SCH (09:37)
[2021-09-12] MEDS: Aspirin 81 MG TAB.CHEW PO SCH (09:37)
[2021-09-12] MEDS: Dexamethasone Sodium Phos/PF 10 MG/ML VIAL IVP SCH (09:38)
[2021-09-12] MEDS: hydrOXYzine pamoate 25 MG CAPSULE PO PRN (09:41)
[2021-09-12] MEDS: Potassium Chloride Elixir 20 MEQ/15 ML UDC PO SCH ×2 (11:20→20:07)
[2021-09-12] MEDS: lisinopriL 5 MG TABLET PO SCH (20:08)
[2021-09-13 03:21] LABS: Basophils % 0.1 %; Hematocrit 44.6 % (35.3-44.9); Hemoglobin 14.1 g/dL (11.5-15.4); Immature Granulocytes % 0.9 % (0-4); Lymphocytes # 0.8 K/mcL (0.6-4.6); Mean Corpuscular HGB Conc 31.6 g/dL (31.6-35.5); Mean Corpuscular Hemoglobin 30.2 pg (28.0-33.3); Mean Corpuscular Volume 95.5 fL (83.0-100.0); Mean Platelet Volume 9.9 fL (9.4-12.4); Monocytes # 0.7 K/mcL (0.0-1.3); Monocytes % 4.7 %; Neutrophils # 13.6 K/mcL (1.6-8.9); Platelet Count 371 K/mcL (140-400); Red Blood Count 4.67 M/mcL (3.82-4.97); Red Cell Distribution Width 12.3 % (11.5-14.5); Segmented Neutrophils % 89.3 %; White Blood Count 15.2 K/mcL (4.3-11.1)
[2021-09-13 03:40] LABS: BUN/Creatinine Ratio 44 (6-26); Blood Urea Nitrogen 35 mg/dL (8-23); Calcium 8.6 mg/dL (8.6-10.3); Carbon Dioxide 34 mEq/L (23-29); Chloride 102 mEq/L (98-107); Glucose 142 mg/dL (70-105); Osmolality,Calculated 306 (280-300); Potassium 3.9 mEq/L (3.5-5.1); Sodium 143 mEq/L (136-145); eGFR For African Americans > 60 (> 60); eGFR For Non-African Americans > 60 (> 60)
[2021-09-13] MEDS: Ipratropium Neb 0.5 MG NEBULIZER IH PRN ×4 (04:19→20:06)
[2021-09-13] MEDS: Acetylcysteine 10% 2 ML INHSOL IH SCH ×4 (04:19→20:06)
[2021-09-13] MEDS: Levalbuterol 1 PUFF INHALER IH SCH ×4 (04:27→20:14)
[2021-09-13] MEDS: *HR* Enoxaparin 40 MG/0.4 ML SYRINGE SQ SCH (06:03)
[2021-09-13] MEDS: Aspirin 81 MG TAB.CHEW PO SCH (08:43)
[2021-09-13] MEDS: Furosemide 40 MG/4 ML VIAL IVP SCH (08:43)
[2021-09-13] MEDS: Loratadine 10 MG TABLET PO SCH (08:43)
[2021-09-13] MEDS: hydrOXYzine pamoate 25 MG CAPSULE PO PRN ×2 (08:43→23:57)
[2021-09-13] MEDS: Dexamethasone Sodium Phos/PF 10 MG/ML VIAL IVP SCH (08:43)
[2021-09-13] MEDS: Potassium Chloride Elixir 20 MEQ/15 ML UDC PO SCH ×2 (09:52→19:39)
[2021-09-13] MEDS: Budesonide/Formoterol 160/4.5 1 PUFF INH IH SCH ×2 (10:55→20:05)
[2021-09-13] MEDS: lisinopriL 5 MG TABLET PO SCH (19:39)
[2021-09-14] MEDS: Ipratropium Neb 0.5 MG NEBULIZER IH PRN ×4 (03:31→20:47)
[2021-09-14] MEDS: Acetylcysteine 10% 2 ML INHSOL IH SCH ×4 (03:31→20:47)
[2021-09-14] MEDS: Levalbuterol 1 PUFF INHALER IH SCH ×4 (03:33→20:49)
[2021-09-14 04:37] LABS: Basophils % 0.2 %; Eosinophils % 0.1 %; Hematocrit 44.4 % (35.3-44.9); Hemoglobin 14.4 g/dL (11.5-15.4); Immature Granulocytes % 1.1 % (0-4); Lymphocytes # 0.9 K/mcL (0.6-4.6); Lymphocytes % 4.7 %; Mean Corpuscular HGB Conc 32.4 g/dL (31.6-35.5); Mean Corpuscular Hemoglobin 31.1 pg (28.0-33.3); Mean Corpuscular Volume 95.9 fL (83.0-100.0); Mean Platelet Volume 10.4 fL (9.4-12.4); Monocytes % 5.1 %; Neutrophils # 17.1 K/mcL (1.6-8.9); Platelet Count 396 K/mcL (140-400); Red Blood Count 4.63 M/mcL (3.82-4.97); Red Cell Distribution Width 12.3 % (11.5-14.5); Segmented Neutrophils % 88.8 %; White Blood Count 19.2 K/mcL (4.3-11.1)
[2021-09-14 04:40] LABS: BUN/Creatinine Ratio 43 (6-26); Blood Urea Nitrogen 31 mg/dL (8-23); Calcium 8.6 mg/dL (8.6-10.3); Carbon Dioxide 30 mEq/L (23-29); Chloride 103 mEq/L (98-107); Glucose 122 mg/dL (70-105); Osmolality,Calculated 302 (280-300); Potassium 4.2 mEq/L (3.5-5.1); Sodium 142 mEq/L (136-145); eGFR For African Americans > 60 (> 60); eGFR For Non-African Americans > 60 (> 60)
[2021-09-14] MEDS: *HR* Enoxaparin 40 MG/0.4 ML SYRINGE SQ SCH (05:23)
[2021-09-14] MEDS: hydrOXYzine pamoate 25 MG CAPSULE PO PRN (07:01)
[2021-09-14] MEDS: Budesonide/Formoterol 160/4.5 1 PUFF INH IH SCH ×2 (08:08→20:47)
[2021-09-14] MEDS: Furosemide 40 MG/4 ML VIAL IVP SCH (10:20)
[2021-09-14] MEDS: Loratadine 10 MG TABLET PO SCH (10:20)
[2021-09-14] MEDS: Aspirin 81 MG TAB.CHEW PO SCH (10:20)
[2021-09-14] MEDS: Dexamethasone Sodium Phos/PF 10 MG/ML VIAL IVP SCH (10:20)
[2021-09-14] MEDS: Potassium Chloride Elixir 20 MEQ/15 ML UDC PO SCH ×2 (10:21→21:51)
[2021-09-14] MEDS: Dexmedetomidine HCl 400 MCG/100 ML MLS IVC SCH (12:51)
[2021-09-14] MEDS ORDERED: Isovue-370 500 ML BOTTLE IVP ONE (15:09)
[2021-09-14] MEDS ORDERED: Lidocaine -MPF 1% 5 ML AMPUL INFILT ONE (18:32)
[2021-09-14] MEDS: lisinopriL 5 MG TABLET PO SCH (21:49)
[2021-09-15] MEDS: Acetylcysteine 10% 2 ML INHSOL IH SCH ×4 (03:23→21:13)
[2021-09-15] MEDS: Ipratropium Neb 0.5 MG NEBULIZER IH PRN ×3 (03:23→21:13)
[2021-09-15] MEDS: Levalbuterol 1 PUFF INHALER IH SCH ×4 (03:26→21:11)
[2021-09-15 04:46] LABS: Basophils % 0.2 %; Eosinophils % 0.1 %; Hematocrit 44.2 % (35.3-44.9); Hemoglobin 13.7 g/dL (11.5-15.4); Immature Granulocytes % 1.3 % (0-4); Lymphocytes # 0.6 K/mcL (0.6-4.6); Lymphocytes % 3.4 %; Mean Corpuscular Hemoglobin 29.8 pg (28.0-33.3); Mean Corpuscular Volume 96.1 fL (83.0-100.0); Mean Platelet Volume 10.9 fL (9.4-12.4); Monocytes # 0.8 K/mcL (0.0-1.3); Monocytes % 4.1 %; Platelet Count 317 K/mcL (140-400); Red Cell Distribution Width 12.4 % (11.5-14.5); Segmented Neutrophils % 90.9 %; White Blood Count 18.6 K/mcL (4.3-11.1)
[2021-09-15 05:04] LABS: Calcium 8.6 mg/dL (8.6-10.3); Potassium 4.9 mEq/L (3.5-5.1)
[2021-09-15] MEDS: *HR* Enoxaparin 40 MG/0.4 ML SYRINGE SQ SCH (06:25)
[2021-09-15] MEDS ORDERED: *HR* Heparin 5,000 UNIT/ML VIAL IVP ONE (07:54)
[2021-09-15] MEDS ORDERED: *HR* Heparin 5,000 UNIT/ML VIAL IVP PRN ×2 (07:54)
[2021-09-15] MEDS ORDERED: Heparin 25,000 UNIT/250 ML 25,000 UNIT/250 ML IV.SOLN IVC SCH (08:00)
[2021-09-15] MEDS ORDERED: Morphine Sulfate 2 MG/ML SYRINGE IVP ONE ×2 (08:53→18:29)
[2021-09-15] MEDS: Dexmedetomidine HCl 400 MCG/100 ML MLS IVC SCH (09:06)
[2021-09-15] MEDS: Loratadine 10 MG TABLET PO SCH (09:08)
[2021-09-15] MEDS: Aspirin 81 MG TAB.CHEW PO SCH (09:08)
[2021-09-15] MEDS: Dexamethasone Sodium Phos/PF 10 MG/ML VIAL IVP SCH (10:10)
[2021-09-15] MEDS: Budesonide/Formoterol 160/4.5 1 PUFF INH IH SCH ×2 (11:41→21:12)
[2021-09-16 00:50] LABS: Hematocrit 40.6 % (35.3-44.9); Hemoglobin 12.9 g/dL (11.5-15.4); Mean Corpuscular HGB Conc 31.8 g/dL (31.6-35.5); Mean Corpuscular Hemoglobin 30.4 pg (28.0-33.3); Mean Corpuscular Volume 95.8 fL (83.0-100.0); Mean Platelet Volume 10.7 fL (9.4-12.4); Platelet Count 274 K/mcL (140-400); Red Blood Count 4.24 M/mcL (3.82-4.97); Red Cell Distribution Width 12.3 % (11.5-14.5); White Blood Count 18.5 K/mcL (4.3-11.1)
[2021-09-16 00:59] LABS: Heparin anti-factor XA UFH 0.66 IU/mL (0.30-0.70)
[2021-09-16 01:09] LABS: Calcium 8.2 mg/dL (8.6-10.3); Potassium 4.3 mEq/L (3.5-5.1)
[2021-09-16 02:39] LABS: INR 1.3; Prothrombin Time 14.2 Seconds (9.4-12.1)
[2021-09-16 02:42] LABS: Activated Partial Thrombo Time 53.3 Seconds (26.0-36.0)
[2021-09-16] MEDS: Acetylcysteine 10% 2 ML INHSOL IH SCH ×4 (03:24→20:46)
[2021-09-16] MEDS: Ipratropium Neb 0.5 MG NEBULIZER IH PRN ×2 (03:25→10:55)
[2021-09-16] MEDS: Levalbuterol 1 PUFF INHALER IH SCH (03:25)
[2021-09-16] MEDS ORDERED: Morphine Sulfate 2 MG/ML SYRINGE IVP ONE (04:37)
[2021-09-16] MEDS: Aspirin 81 MG TAB.CHEW PO SCH (08:55)
[2021-09-16] MEDS: Loratadine 10 MG TABLET PO SCH (08:55)
[2021-09-16] MEDS: Dexamethasone Sodium Phos/PF 10 MG/ML VIAL IVP SCH (08:57)
[2021-09-16] MEDS: Heparin 25,000UNIT/250ML 1/2NS 25,000 UNIT/250 ML IV.SOLN IVC SCH (08:57)
[2021-09-16] MEDS: Dexmedetomidine HCl 400 MCG/100 ML MLS IVC SCH (09:19)
[2021-09-16] MEDS: Budesonide/Formoterol 160/4.5 1 PUFF INH IH SCH ×3 (10:55→20:47)
[2021-09-16] MEDS: Morphine Sulfate 2 MG/ML SYRINGE IVP PRN ×2 (14:42→23:32)
[2021-09-16] MEDS: Nystatin SUSP 5 ML UD.LIQ PO SCH ×2 (18:24→22:55)
[2021-09-16] MEDS: Chlorhexidine Rinse 15 ML MOUTHWASH MM SCH (22:55)
[2021-09-17] MEDS: Acetylcysteine 10% 2 ML INHSOL IH SCH ×4 (03:51→20:27)
[2021-09-17] MEDS: Morphine Sulfate 2 MG/ML SYRINGE IVP PRN ×2 (04:14→09:14)
[2021-09-17] MEDS: Ondansetron 4 MG/2 ML VIAL IVP PRN ×3 (04:20→21:26)
[2021-09-17] MEDS: Heparin 25,000UNIT/250ML 1/2NS 25,000 UNIT/250 ML IV.SOLN IVC SCH (05:00)
[2021-09-17] MEDS: Nystatin SUSP 5 ML UD.LIQ PO SCH ×4 (09:14→21:12)
[2021-09-17] MEDS: Chlorhexidine Rinse 15 ML MOUTHWASH MM SCH ×2 (09:14→21:12)
[2021-09-17] MEDS: Ipratropium Neb 0.5 MG NEBULIZER IH PRN (09:14)
[2021-09-17] MEDS: Aspirin 81 MG TAB.CHEW PO SCH (09:15)
[2021-09-17] MEDS: Dexamethasone Sodium Phos/PF 10 MG/ML VIAL IVP SCH (09:15)
[2021-09-17] MEDS: Budesonide/Formoterol 160/4.5 1 PUFF INH IH SCH ×2 (09:15→20:28)
[2021-09-17] MEDS: Loratadine 10 MG TABLET PO SCH (09:15)
[2021-09-17 13:32] LABS: BUN/Creatinine Ratio 66 (6-26); Blood Urea Nitrogen 65 mg/dL (8-23); Calcium 8.4 mg/dL (8.6-10.3); Carbon Dioxide 28 mEq/L (23-29); Chloride 102 mEq/L (98-107); Glucose 177 mg/dL (70-105); Magnesium 2.6 mg/dL (1.6-2.6); Osmolality,Calculated 307 (280-300); Phosphorous 3.6 mg/dL (2.7-4.5); Potassium 4.5 mEq/L (3.5-5.1); Sodium 137 mEq/L (136-145); Triglycerides 202 mg/dL (< 150); eGFR For African Americans > 60 (> 60); eGFR For Non-African Americans 55 (> 60)
[2021-09-17] MEDS: hydrOXYzine pamoate 25 MG CAPSULE PO PRN (16:36)
[2021-09-18] MEDS: Acetylcysteine 10% 2 ML INHSOL IH SCH ×4 (03:45→20:48)
[2021-09-18 04:14] LABS: BUN/Creatinine Ratio 53 (6-26); Blood Urea Nitrogen 46 mg/dL (8-23); Calcium 8.2 mg/dL (8.6-10.3); Carbon Dioxide 28 mEq/L (23-29); Chloride 106 mEq/L (98-107); Glucose 124 mg/dL (70-105); Magnesium 2.5 mg/dL (1.6-2.6); Osmolality,Calculated 305 (280-300); Phosphorous 3.1 mg/dL (2.7-4.5); Potassium 4.3 mEq/L (3.5-5.1); Sodium 141 mEq/L (136-145); eGFR For African Americans > 60 (> 60); eGFR For Non-African Americans > 60 (> 60)
[2021-09-18 04:32] LABS: Mean Corpuscular HGB Conc 31.7 g/dL (31.6-35.5); Mean Corpuscular Hemoglobin 30.4 pg (28.0-33.3); Mean Platelet Volume 11.2 fL (9.4-12.4); Platelet Count 342 K/mcL (140-400); Red Blood Count 4.27 M/mcL (3.82-4.97); Red Cell Distribution Width 12.3 % (11.5-14.5); White Blood Count 21.7 K/mcL (4.3-11.1)
[2021-09-18] MEDS: Morphine Sulfate 2 MG/ML SYRINGE IVP PRN (06:58)
[2021-09-18] MEDS: Ondansetron 4 MG/2 ML VIAL IVP PRN (07:05)
[2021-09-18] MEDS: Dexmedetomidine HCl 400 MCG/100 ML MLS IVC SCH ×2 (07:50→13:33)
[2021-09-18] MEDS: Heparin 25,000UNIT/250ML 1/2NS 25,000 UNIT/250 ML IV.SOLN IVC SCH ×2 (07:51→15:02)
[2021-09-18] MEDS: Budesonide/Formoterol 160/4.5 1 PUFF INH IH SCH ×2 (08:18→20:49)
[2021-09-18] MEDS: Aspirin 81 MG TAB.CHEW PO SCH (09:27)
[2021-09-18] MEDS: Chlorhexidine Rinse 15 ML MOUTHWASH MM SCH ×2 (09:27→20:43)
[2021-09-18] MEDS: dexAMETHasone 4 MG TABLET PO SCH (09:27)
[2021-09-18] MEDS: Nystatin SUSP 5 ML UD.LIQ PO SCH ×4 (09:27→20:43)
[2021-09-18] MEDS: Loratadine 10 MG TABLET PO SCH (09:27)
[2021-09-18] MEDS ORDERED: D10% in Water 500 ML IVC PRN (09:51)
[2021-09-18] MEDS ORDERED: Fat Emulsion 250 ML IVPB SCH (10:00)
[2021-09-18] MEDS: hydrOXYzine pamoate 25 MG CAPSULE PO PRN ×2 (16:30→21:49)
[2021-09-18] MEDS ORDERED: Clinimix E 5%-15% SOLUTION 2,000 ML with MVI, adult with vitamin K 10 ML IVC SCH (17:00)
[2021-09-19] MEDS: Morphine Sulfate 2 MG/ML SYRINGE IVP PRN (00:27)
[2021-09-19] MEDS ORDERED: diazePAM 10 MG/2 ML SYRINGE IVP ONE (02:30)
[2021-09-19] MEDS: Ondansetron 4 MG/2 ML VIAL IVP PRN ×2 (04:03→09:00)
[2021-09-19] MEDS: Acetylcysteine 10% 2 ML INHSOL IH SCH (04:06)
[2021-09-19 04:44] LABS: Hemoglobin 12.5 g/dL (11.5-15.4); Mean Corpuscular HGB Conc 32.1 g/dL (31.6-35.5); Mean Corpuscular Volume 96.8 fL (83.0-100.0); Mean Platelet Volume 11.1 fL (9.4-12.4); Platelet Count 334 K/mcL (140-400); Red Blood Count 4.03 M/mcL (3.82-4.97); Red Cell Distribution Width 12.3 % (11.5-14.5); White Blood Count 22.4 K/mcL (4.3-11.1)
[2021-09-19 04:59] LABS: Alanine Aminotransferase 42 Units/L (7-52); Albumin 2.6 g/dL (3.5-5.7); Albumin/Globulin Ratio 0.8 (1.1-2.2); Alkaline Phosphatase 62 Units/L (34-104); Aspartate Amino Transferase 26 Units/L (13-39); BUN/Creatinine Ratio 45 (6-26); Bilirubin,Total 0.6 mg/dL (0.3-1.0); Blood Urea Nitrogen 36 mg/dL (8-23); Calcium 8.2 mg/dL (8.6-10.3); Carbon Dioxide 30 mEq/L (23-29); Chloride 108 mEq/L (98-107); Globulin 3.3 g/dL (2.4-3.5); Glucose 172 mg/dL (70-105); Magnesium 2.4 mg/dL (1.6-2.6); Osmolality,Calculated 306 (280-300); Phosphorous 3.1 mg/dL (2.7-4.5); Potassium 4.2 mEq/L (3.5-5.1); Sodium 142 mEq/L (136-145); Total Protein 5.9 g/dL (6.4-8.9); eGFR For African Americans > 60 (> 60); eGFR For Non-African Americans > 60 (> 60)
[2021-09-19] MEDS ORDERED: Vancomycin 1,500 MG/265 ML IV.SOLN IVPB ONE (08:00)
[2021-09-19] MEDS ORDERED: Cefepime HCl 2,000 MG in 0.9 % Sodium Chloride Mini Bag 100 ML IVPB SCH (08:00)
[2021-09-19] MEDS: Aspirin 81 MG TAB.CHEW PO SCH (08:19)
[2021-09-19] MEDS: Chlorhexidine Rinse 15 ML MOUTHWASH MM SCH (08:19)
[2021-09-19] MEDS: dexAMETHasone 4 MG TABLET PO SCH (08:19)
[2021-09-19] MEDS: Nystatin SUSP 5 ML UD.LIQ PO SCH (08:19)
[2021-09-19] MEDS: Loratadine 10 MG TABLET PO SCH (08:19)
[2021-09-19 08:21] VITALS: BP 112/70; PULSE 95; TEMP 97.3; O2SAT 78
[2021-09-19] MEDS ORDERED: Morphine Sulfate 2 MG/ML SYRINGE IVP ONE (08:34)
[2021-09-19] MEDS ORDERED: Haloperidol Lactate 5 MG/ML VIAL IVP ONE (08:34)
[2021-09-19] MEDS ORDERED: *HR* Midazolam HCl 2 MG/2 ML VIAL IVP PRN (08:40)
[2021-09-19] MEDS ORDERED: Haloperidol Lactate 5 MG/ML VIAL IVP PRN (08:41)
[2021-09-19] MEDS ORDERED: Morphine Sulfate 2 MG/ML SYRINGE IVP PRN (08:42)
[2021-09-19] MEDS: Dexmedetomidine HCl 400 MCG/100 ML MLS IVC SCH (12:11)
[2021-09-19] MEDS ORDERED: Clinimix E 5%-15% SOLUTION 2,000 ML with MVI, adult with vitamin K 10 ML IVC SCH ×2 (17:00)
== END 2021-09-19 13:09 | disposition expired | DRG 177 ==
LOC: EMEROOARM 09:35 → 3NENU 09:35 → SUATTDRO 13:29 → ICNU 09-14 17:07 → 3NENU 09-14 20:06
PROVIDERS: ADMIT Internal Medicine; ATTEND Internal Medicine